=== PATIENT | male | born 1970 | race Hispanic/Latino ===

== ENCOUNTER 2017-12-31 12:24 | Emergency (ER) | payer BC ==
[~2017-12-31] VITALS: Ht 172.7 cm; Wt 117.9 kg
[2017-12-31] MEDS ORDERED: KETOROLAC TROMETHAMINE 60 MG/2 ML VIAL IM ONE (13:00)
--- NOTE | 2017-12-31 13:43 | Diagnostic Imaging Report ---
EXAM: SHOULDER LEFT COMPLETE DATE: 12/31/2017 12:57 PM INDICATION: Fall/pain COMPARISON: None FINDINGS: No fracture or subluxation. Subacromial space is intact. No significant degenerative change. Visualized left lung clear. IMPRESSION: No acute findings. Signed by: Dr. Lebron Camacho MD on 12/31/2017 1:40 PM
--- NOTE | 2017-12-31 13:45 | Diagnostic Imaging Report ---
EXAM: XR CHEST 2 VIEWS DATE: 12/31/2017 12:57 PM INDICATION: Fall/pain COMPARISON: None FINDINGS: Lines and Tubes: None Heart and Mediastinum: No acute cardiomediastinal findings. Lungs and Pleura: No significant pleural effusion, pneumothorax, or focal consolidation. Bones and Soft Tissues: No acute findings. IMPRESSION: 1. No acute cardiopulmonary findings. Signed by: Dr. eLbron Camacho MD on 12/31/2017 1:41 PM
== END 2017-12-31 15:10 | disposition home or self-care (01) ==
LOC: ER 12:24
DX: S46.011A Strain of muscle(s) and tendon(s) of the rotator cuff of right shoulder, initial encounter (principal); W11.XXXA Fall on and from ladder, initial encounter; Y92.008 Other place in unspecified non-institutional (private) residence as the place of occurrence of the external cause
CPT/HCPCS: 71046; 73030; 99283; J1885

== ENCOUNTER 2019-12-28 18:53 | Emergency (ER) | payer BC ==
[~2019-12-28] VITALS: Ht 172.7 cm; Wt 117.9 kg
--- NOTE | 2019-12-28 19:16 | Emergency Department Note ---
History of Present Illnes History of Present Illness Chief Complaint: Laceration History of Present Illness This is a 49 year old male presents to the ED for laceration of index f jonnie. 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 Historian: Patient Arrival Mode: Car Onset (how long ago): minute(s) Radiation: Reports non-radiation, Reports extremity Past Medical/Family History Physician Review I have reviewed the patient's past medical and family history. Any updates have been documented here. Past Medical History Past Medical History: None Past Surgical History: None Other Last Tetanus: UTD Physical Exam Related Data Allergies: Coded Allergies: No Known Allergies (Unverified , 12/31/17) Triage Vital Signs Vital Signs Date Time Temp Pulse Resp B/P (MAP) Pulse Ox O2 Delivery O2 Flow Rate FiO2 12/28/19 19:26 98.2 78 20 166/71 97 Room Air Vital signs reviewed: Yes Physical Exam CONSTITUTIONAL Constitutional: Present well-developed, Present well-nourished HENT HENT: Present normocephalic, Present atraumatic, Present oropharynx clear/moist, Present nose normal HENT L/R: Present left ext ear normal, Present right ext ear normal EYES Eyes: Reports PERRL, Reports conjunctivae normal NECK Neck: Present ROM normal PULMONARY Pulmonary: Present effort normal, Present breath sounds normal CARDIOVASCULAR Cardiovascular: Present regular rhythm, Present heart sounds normal, Present capillary refill normal, Present normal rate GASTROINTESTINAL Abdominal: Present soft, Present nontender, Present bowel sounds normal GENITOURINARY Genitourinary: Present exam deferred SKIN Skin: Present warm, Present dry, Present other (2 cm laceration L index finger) MUSCULOSKELETAL Musculoskeletal: Present ROM normal NEUROLOGICAL Neurological: Present alert, Present oriented x 3, Present no gross motor or sensory deficits PSYCHOLOGICAL Psychological: Present mood/affect normal, Present judgement normal Procedures Laceration Laceration: Laceration 1 Site: hand Side: left Size (cm): 2 Description: linear Depth: simple, single layer Local anesthesia: lidocaine 1% Amount of anesthesia (mL): 3 Skin layer closed with: nylon Size (cm): 5-0 Number of sutures: 4 Technique: simple, interrupted Assessment & Plan Medical Decision Making MDM Laceration primarily repaired Assessment & Plan Final Impression: (1) Laceration of finger Depart Disposition: HOME, SELF-CARE ISSAC RDZ DO Dec 28, 2019 19:16
[2019-12-28] MEDS ORDERED: LIDOCAINE HCL 1% LOCAL INJ 20 ML VIAL INJ ONE (19:30)
[2019-12-28] MEDS ORDERED: TETANUS/DIPHTHERIA TOX ADULT 0.5 ML SYR ONE (19:36)
[2019-12-28] MEDS ORDERED: TETANUS/DIPHTHERIA TOX ADULT 0.5 ML SYR IM ONE (19:45)
--- OUTSIDE RECORDS SUMMARY | 2019-12-30 16:25 | XMS REPORT | Continuity of Care Document ---
Author Author [facility] t Organization [facility] Address [address] [place] [address] Phone Unavailable Care Team Providers Care Lasting Floorworker Name Role Phone MIRANDA LINN PCP Myra ANDREWS Unavailable Payers Payer Name Policy Type Policy Number Effective Date Expiration Date S laz[place] [employer] [place] [id number] CH I [facility] Problems Condition Name Condition Details Condition Category Status Onset Date Resolution Date Last Treatment Date Treating Clinician Comments Source Laceration of finger Problem Active [facility] Allergies, Adverse Reactions, Alerts This patient has no known allergies or adverse reactions. Social History Social Habit Start Date Stop Date Quantity Comments Source Sex Assigned At 1970 00:00:00 1970 00:00:00 Male [facility] Medications This patient has no known medications. Vital Signs Vital Name Observation Time Observation Value Comments Source Weight 2019-12-28 19:26:00 260 [lb_av] [facility] BMI (Body Mass Index) 2019-12-28 19:26:00 39.5 kg/m2 [facility] Procedures This patient has no known procedures. Plan of Care Planned Activity Planned Date Details Comments Source Instructions Laceration [facility] Encounters Start Date/Time End Date/Time Encounter Type Admission Type Attendi [facility] Care Department Encounter ID Source 2019-12-28 19:26:00 2019-12-28 19:38:00 Departed Emergency Room [facility] [id number] [facility] 2017-12-31 12:24:00 2017-12-31 15:10:00 Departed Emergency Room 1 CAMILO ANDREWS [facility] [id number] [facility] Results Test Description Test Time Test Comments Results Result Comments Source CHEST 2 VIEWS 2017-12-31 13:41:00 [facility] [address] [place] [address] Patient Name: TERESA SHANNON MR #: [id number] : 1970 Age/Sex: 47/M Req #: [id number] Adm Physician: Ordered by: CRISTÓBAL AGUIAR NP Report #: [id number] Location: ER Room/Bed: Procedure: [id number] DX/CHEST 2 VIEWS Exam Date: 12/31/17 Exam Time: 1330 REPORT STATUS: Signed EXAM: XR CHEST 2 VIEWS DATE: 12/31/2017 12:57 PM INDICATION: Fall/pain COMPARISON: None FINDINGS: Lines and Tubes: None Heart and Mediastinum: No acute cardiomediastinal findings. Lungs and Pleura: No significant pleural effusion, pneumothorax, or focal consolidation. Bones and Soft Tissues: No acute findings. IMPRESSION: 1. No acute cardiopulmonary findings. Signed by: Dr. Odalys Camacho MD on 12/31/2017 1:41 PM Dictated By: ODALYS CAMACHO MD 1341 Transcribed By: SHAUNNA on 12/31/17 1341 COPY TO: CRISTÓBAL AGUIAR NP SHOULDER LEFT COMPLETE 2017-12-31 13:39:00 [place] [address] Patient Name: TERESA SHANNON MR #: [id number] : 1970 Age/Sex: 47/M Req #: [id number] [facility] Physician: Ordered by: CRISTÓBAL AGUIAR NP Report #: [id number] Location: ER Room/Bed: Procedure: [id number] DX/SHOULDER LEFT COMPLETE Exam Date: 12/31/17 Exam Time: 1330 REPORT STATUS: Signed EXAM: SHOULDER LEFT COMPLETE DATE: 12/31/2017 12:57 PM INDICATION: Fall/pain COMPARISON: None FINDINGS: No fracture or subluxation. Subacromial space is intact. No significant degenerative change. Visualized left lung clear. IMPRESSION: No acute findings. Signed by: Dr. Odalys Camacho MD on 12/31/2017 1:40 PM Dictated By: ODALYS CAMACHO MD 1340 Transcribed By: SHAUNNA on 12/31/17 1340 COPY TO: CRISTÓBAL AGUIAR NP
== END 2019-12-28 19:38 | disposition home or self-care (01) ==
LOC: ER 19:26
DX: S61.211A Laceration without foreign body of left index finger without damage to nail, initial encounter (principal); W26.0XXA Contact with knife, initial encounter; Y92.008 Other place in unspecified non-institutional (private) residence as the place of occurrence of the external cause
CPT/HCPCS: 90471; 90714; 99282

== ENCOUNTER 2020-02-14 17:12 | Inpatient (IN) | payer BC ==
[~2020-02-14] VITALS: Ht 170.2 cm; Wt 109.8 kg
[2020-02-14] MEDS ORDERED: DEXAMETHASONE SOD PHOS 10 MG/1 ML VIAL IV ONE (17:30)
--- NOTE | 2020-02-14 17:45 | Emergency Department Note ---
History of Present Illnes History of Present Illness Chief Complaint: COVID PUI History of Present Illness This is a 50 year old male Chief Complaint Comment Patient c/o increased SOB, chestpain, cough, headaches for 3days; patient recently dx with COVID 02/06/2020; Historian: Patient Arrival Mode: Car Project Officer Required: No Onset (how long ago): week(s) (1) Location: lungs Quality: SoB Radiation: Reports non-radiation Severity: moderate Onset quality: gradual Duration (how long): week(s) (1) Timing of current episode: constant Progression: worsening Chronicity: new Context: Reports recent illness (COVID); Denies recent surgery Relieving factors: none Exacerbating factors: none Associated symptoms: Reports denies other symptoms Treatments prior to arrival: none (SILAS PENDLETON MD) Past Medical/Family History Physician Review I have reviewed the patient's past medical and family history. Any updates have been documented here. (SILAS PENDLETON MD) Past Medical History Recent Fever: Yes Clinical Suspicion of Infectio: Yes New/Unexplained Change in Ment: No Past Medical History: Hypertension, Diabetes Past Surgical History: None (SILAS PENDLETON MD) Social History Physically hurt or threatened: No (SILAS PENDLETON MD) Other Last Tetanus: UTD (SILAS PENDLETON MD) Review of Systems Review of Systems Constitutional: Reports no symptoms EENTM: Reports no symptoms Cardiovascular: Reports as per HPI, Reports other (Chest pressure) Respiratory: Reports as per HPI, Reports cough, Reports dyspnea Gastrointestinal: Reports no symptoms Genitourinary: Reports no symptoms Musculoskeletal: Reports no symptoms Integumentary: Reports no symptoms Neurological: Reports no symptoms Psychological: Reports no symptoms Endocrine: Reports no symptoms Hematological/Lymphatic: Reports no symptoms (SILAS PENDLETON MD) Physical Exam Related Data Allergies: Coded Allergies: No Known Allergies (Unverified , 12/31/17) Triage Vital Signs Vital Signs Date Time Temp Pulse Resp B/P (MAP) Pulse Ox O2 Delivery O2 Flow Rate FiO2 02/14/20 17:33 99.8 90 21 123/86 83 Room Air Vital signs reviewed: Yes (SILAS PENDLETON MD) Physical Exam CONSTITUTIONAL Constitutional: Present well-developed, Present well-nourished HENT HENT: Present normocephalic, Present atraumatic, Present oropharynx clear/moist, Present nose normal HENT L/R: Present left ext ear normal, Present right ext ear normal EYES Eyes: Reports PERRL, Reports conjunctivae normal NECK Neck: Present ROM normal PULMONARY Pulmonary: Present effort normal, Present breath sounds normal, Present other (O2 sat 88% on RA) CARDIOVASCULAR Cardiovascular: Present regular rhythm, Present heart sounds normal, Present capillary refill normal, Present normal rate GASTROINTESTINAL Abdominal: Present soft, Present nontender, Present bowel sounds normal GENITOURINARY Genitourinary: Present exam deferred SKIN Skin: Present warm, Present dry MUSCULOSKELETAL Musculoskeletal: Present ROM normal NEUROLOGICAL Neurological: Present alert, Present oriented x 3, Present no gross motor or sensory deficits PSYCHOLOGICAL Psychological: Present mood/affect normal, Present judgement normal (SILAS PENDLETON MD) Results Laboratory Laboratory Laboratory Tests Test 02/14/20 17:30 Lab results reviewed: Yes (SILAS PENDLETON MD) Lab results reviewed: Yes (ORION GLASER MD) Imaging Imaging results reviewed: Yes (SILAS PENDLETON MD) Imaging results reviewed: Yes (ORION GLASER MD) Diagnostics Tests Diagnostic test(s) reviewed: Yes (SILAS PENDLETON MD) Diagnostic test(s) reviewed: Yes (ORION GLASER MD) Procedures 12 Lead ECG Interpretation ECG Interpretation : Project Officer: Interpreted by ED physician Date: Feb 14, 2020 Rhythm: sinus rhythm Rate: normal QRS axis: normal ST segments normal: Yes T waves normal: Yes Clinical Impression: non-specific ECG (SILAS PENDLETON MD) Assessment & Plan Medical Decision Making [facility] 50 y.o M COVID+ presents for SoB. COVID + x 1 week. Endorses chest pressure. Exam shows O2 sat 88% on RA. Increased to 95% o 4L NC. Given 6mg Decadron and will arange admission or transfer based on bed availability. Pending discusion with Dr. Seymour. Attempted to marcia x1 each Handed of to Dr. Glaser @ 1800 (SILAS PENDLETON MD) [facility] Patient was accepted by Dr. Mcmillan, will be admitted currently on 4 L without increased work of breathing. Admitting team. ID has been consulted and here to see the patient. (ORION GLASER MD) Reassessment Reassessment time: 17:45 Reassessment O2 sat improved on NC 4L (SILAS PENDLETON MD) Assessment & Plan Final Impression: (1) COVID-19 (SILAS PENDLETON MD) Final Impression: (1) COVID-19 (2) Pneumonia due to COVID-19 virus (3) Hypoxia (ORION GLASER MD) Depart Disposition: ADMITTED Last Vital Signs Date Time Temp Pulse Resp B/P (MAP) Pulse Ox O2 Delivery O2 Flow Rate FiO2 02/14/20 17:33 99.8 90 21 123/86 83 Room Air (SILAS PENDLETON MD) Home Meds Reported Medications Triamterene/Hctz (TRIAMTERENE-HCTZ 37.5-25 MG TB) 1 Ea Tab, 1 TAB PO DAILY 02/14/20 Metformin Hcl (METFORMIN HCL) 500 Mg Tablet, 500 MG PO BID 02/14/20 Medications in the ED Dexamethasone Sodium Phosphate 6 mg ONCE ONCE IV ; Start 02/14/20 at 17:30; Stop 02/14/20 at 17:33; Status DC (SILAS PENDLETON MD) SILAS PENDLETON MD Feb 14, 2020 17:45 ORION GLASER MD Feb 14, 2020 19:31
[2020-02-14 17:46] LABS: BASOPHILS % 0.1 % (0.0-1.0); HEMATOCRIT 45.1 % (38.2-49.6); HEMOGLOBIN 15.4 g/dL (14.0-18.0); LYMPHOCYTES # (AUTO) 0.7 (1.0-3.2); LYMPHOCYTES % 7.2 % (18.0-39.1); MEAN CORPUSCULAR HEMOGLOBIN 28.3 pg (28-32); MEAN CORPUSCULAR HGB CONC 34.1 g/dL (31-35); MEAN CORPUSCULAR VOLUME 82.9 fL (81-99); MONOCYTES # (AUTO) 0.4 (0.2-0.8); MONOCYTES % 4.1 % (4.4-11.3); NEUTROPHILS # (AUTO) 8.7 (2.1-6.9); NEUTROPHILS % 87.1 % (38.7-80.0); PLATELET COUNT 329 x10e3/uL (140-360); RED BLOOD COUNT 5.44 x10e6/uL (4.3-5.7); RED CELL DISTRIBUTION WIDTH 12.8 % (11.7-14.4)
--- OUTSIDE RECORDS SUMMARY | 2020-02-14 17:46 | XMS REPORT | Continuity of Care Document ---
Author Author [facility] t Organization [facility] Address [address] [place] [address] Phone Unavailable Care Team Providers Care Labor Trainer Name Role Phone TEMITOPE MIRANDA PCP Myra ANDREWS Unavailable Payers Payer Name Policy Type Policy Number Effective Date Expiration Date S lazaro [employer] [place] Ppo [id number] CH I [facility] Problems Condition Name Condition Details Condition Category Status Onset Date Resolution Date Last Treatment Date Treating Clinician Comments Source Laceration of finger Problem Active [facility] Allergies, Adverse Reactions, Alerts This patient has no known allergies or adverse reactions. Social History Social Habit Start Date Stop Date Quantity Comments Source Sex Assigned At 1970 00:00:00 1970 00:00:00 Male [facility] Medications This patient has no known medications. Vital Signs Vital Name Observation Time Observation Value Comments Source Weight 2019-12-28 19:26:00 260 [lb_av] [facility] BMI (Body Mass Index) 2019-12-28 19:26:00 39.5 kg/m2 [facility] Procedures This patient has no known procedures. Plan of Care Planned Activity Planned Date Details Comments Source Instructions Laceration [facility] Encounters Start Date/Time End Date/Time Encounter Type Admission Type Attendi [facility] Care Department Encounter ID Source 2019-12-28 19:26:00 2019-12-28 19:38:00 Departed Emergency Room [facility] [id number] [facility] 2017-12-31 12:24:00 2017-12-31 15:10:00 Departed Emergency Room 1 CAMILO ANDREWS [facility] [id number] [facility] Results Test Description Test Time Test Comments Results Result Comments Source CHEST 2 VIEWS 2017-12-31 13:41:00 [facility] [address] [place] [address] Patient Name: TERESA SHANNON MR #: [id number] : 1970 Age/Sex: 47/M Req #: [id number] Adm Physician: Ordered by: CRISTÓBAL AGUIAR NP Report #: [id number] Location: ER Room/Bed: Procedure: [id number] DX/CHEST 2 VIEWS Exam Date: 12/31/17 Exam [...] AGUIAR NP SHOULDER LEFT COMPLETE 2017-12-31 13:39:00 [facility] [address] [place] [address] Patient Name: TERESA SHANNON MR #: [id number] : 1970 Age/Sex: 47/M Req #: [id number] Adm Physician: Ordered by: CRISTÓBAL AGUIAR NP Report #: [id number] Location: ER Room/Bed: Procedure: [id number] DX/SHOULDER LEFT COMPLETE Exam Date: 12/31/17 Exam [...]
[2020-02-14 18:04] LABS: ALANINE AMINOTRANSFERASE 28 IU/L (0-55); ALBUMIN 2.8 g/dL (3.5-5.0); ALBUMIN/GLOBULIN RATIO 0.6 (0.8-2.0); ALKALINE PHOSPHATASE 62 IU/L (40-150); ANION GAP 14.7 mmol/L (8-16); BLOOD UREA NITROGEN 14 mg/dL (7-26); BUN/CREATININE RATIO 20 (6-25); CALCIUM 8.4 mg/dL (8.4-10.2); CARBON DIOXIDE 26 mmol/L (22-29); CHLORIDE 96 mmol/L (98-107); EST GLOMERULAR FILTRATION RATE > 60 ML/MIN (60-); GLUCOSE 218 mg/dL (74-118); POTASSIUM 3.7 mmol/L (3.5-5.1); SODIUM 133 mmol/L (136-145)
--- NOTE | 2020-02-14 18:09 | Diagnostic Imaging Report ---
EXAMINATION: CHEST SINGLE (PORTABLE) INDICATION: Shortness of breath. Covid 19 positive. COMPARISON: 12/31/2017. FINDINGS: TUBES and LINES: None. LUNGS: Lungs are well inflated. Mild perihilar, peribronchial thickening and perihilar streaky densities may reflect viral infection versus reactive airway disease. In addition, bilateral diffuse patchy density. PLEURA: No pleural effusion or pneumothorax. HEART AND MEDIASTINUM: Cardiac size is moderately enlarged. BONES AND SOFT TISSUES: No acute osseous lesion. Soft tissues are unremarkable. UPPER ABDOMEN: No free air under the diaphragm. IMPRESSION: Findings consistent with bilateral viral versus atypical infection. (Findings present are commonly reported imaging features of COVID-19 pneumonia. Other processes such as influenza pneumonia and organizing pneumonia, as can be seen with drug toxicity and connective tissue disease, can cause a similar imaging pattern). Signed by: Dr. Diamond Anders M.D. on 02/14/2020 6:06 PM
--- NOTE | 2020-02-14 18:41 | NUR ---
Report to CAITLIN David
--- OUTSIDE RECORDS SUMMARY | 2020-02-14 19:07 | XMS REPORT | Continuity of Care Document ---
Author Author [facility] t Organization [facility] Address [address] [place] [address] Phone Unavailable Care Team Providers Care Geriatrics Physician Name Role Phone TEMITOPE, RUBEN PCP Heather Lira Attphybeau Unavailable Myra ANDREWS Attphybeau Unavailable Payers Payer Name Policy Type Policy Number Effective Date Expiration Date S lazaro [employer] [place] Ppo [id number] CH I [facility] Problems Condition Name Condition Details Condition Category Status Onset Date Resolution Date Last Treatment Date Treating Clinician Comments Source Laceration of finger Problem Active [facility] Allergies, Adverse Reactions, Alerts This patient has no known allergies or adverse reactions. Social History Social Habit Start Date Stop Date Quantity Comments Source Sex Assigned At 1970 00:00:00 1970 00:00:[address] [facility] Medications This patient has no known medications. Vital Signs Vital Name Observation Time Observation Value Comments Source Weight 2019-12-28 19:26:00 260 [lb_av] [facility] BMI (Body Mass Index) 2019-12-28 19:26:00 39.5 kg/m2 [facility] Procedures This patient has no known procedures. Plan of Care Planned Activity Planned Date Details Comments Source Instructions Laceration [facility] Encounters Start Date/Time End Date/Time Encounter Type Admission Type Attendi [facility] Care Department Encounter ID Source 2019-12-28 19:26:00 2019-12-28 19:38:00 Departed Emergency Room [facility] [id number] [facility] 2017-12-31 12:24:00 2017-12-31 15:10:00 Departed Emergency Room 1 CAMILO ANDREWS [facility] [id number] [facility] Results Test Description Test Time Test Comments Results Result Comments Source CHEST SINGLE (PORTABLE) 2020-02-14 18:03:00 [facility] 1970 Sex: [place] [address] Patient Name: TERESA SHANNON MR #: [id number] : 1970 Age/Sex: 50/M Req #: [id number] [facility] Physician: Ordered by: Silas Lira MD Report #: [id number] Location: ER Room/Bed: Procedure: [id number] DX/CHEST SINGLE (PORTABLE) Exam Date: Exam Time: REPORT STATUS: Signed EXAMINATION: CHEST SINGLE (PORTABLE) INDICATION: Shortness of breath. Covid 19 positive. COMPARISON: 12/31/2017. FINDINGS: TUBES and LINES: None. LUNGS: Lungs are well inflated. Mild perihilar, peribronchial thickening and perihilar streaky densities may reflect viral infection versus reactive airway disease. In addition, bilateral diffuse patchy density. PLEURA: No pleural effusion or pneumothorax. HEART AND MEDIASTINUM: Cardiac size is moderately enlarged. BONES AND SOFT TISSUES: No acute osseous lesion. Soft tissues are unremarkable. UPPER ABDOMEN: No free air under the diaphragm. IMPRESSION: Findings consistent with bilateral viral versus atypical infection. (Findings present are commonly reported imaging features of COVID- 19 pneumonia. Other processes such as influenza pneumonia and organizing pneumonia, as can be seen with drug toxicity and connective tissue disease, can cause a similar imaging pattern). Signed by: Dr. Diamond Miranda M.D. on 02/14/2020 6:06 PM Dictated By: HALLE MIRANDA MD, MD 05 Transcribed By: SHAUNNA on 02/14/201805 COPY TO: SILAS LIRA MD CHEST 2 VIEWS 2017-12-31 13:41:00 [place] [address] Patient Name: TERESA SHANNON MR #: [id number] : 1970 Age/Sex: 47/M Req #: [id number] Adm Physician: Ordered by: CRISTÓBAL AGUIAR NP Report #: [id number] Location: ER Room/Bed: Procedure: [id number] DX/CHEST 2 VIEWS Exam Date: 12/31/17 Exam [...] MD 1341 Transcribed By: SHAUNNA on 12/31/17 134 COPY TO: CRISTÓBAL AGUIAR NP SHOULDER LEFT COMPLETE 2017-12-31 13:39:00 [address] [place] [address] Patient Name: TERESA SHANNON MR #: [id number] : 1970 Age/Sex: 47/M Req #: [id number] Adm Physician: Ordered by: CRISTÓABL AGUIAR NP Report #: [id number] Location: ER Room/Bed: Procedure: [id number] DX/SHOULDER LEFT COMPLETE Exam Date: 12/31/17 Exam [...]
[2020-02-14] MEDS ORDERED: METFORMIN HCL500 MG PO (19:12)
[2020-02-14] MEDS ORDERED: TRIAMTERENE-HCTZ1 EA PO (19:12)
[2020-02-14] MEDS ORDERED: DEXTROSE 50% SYRINGE 50 ML IV PRN (20:00)
[2020-02-14] MEDS ORDERED: CEFTRIAXONE SOD 1 GM/NS 50 ML 50 ML IV SCH (20:00)
[2020-02-14] MEDS ORDERED: ZOLPIDEM TARTRATE 5 MG TAB PO PRN (20:00)
[2020-02-14 20:18] VITALS: BP 64/72
--- NOTE | 2020-02-14 20:18 | NUR ---
patient received to room 186 via stretcher from the emergency room. vss. no c/o pain. patient very sob on exertion. 05/08/ in use. 02 sats 91% at this time. occasional coughing noted. telemetry #90 shows NSR. admit assessment/history complete. call cedeño placed within reach. patient instructed to call for assistance when needed.
[2020-02-14 20:24] VITALS: BP 123/64
[2020-02-14 20:44] VITALS: BP 123/64
[2020-02-14] MEDS: INSULIN REGULAR, HUMAN 100 UNIT/1 ML 3ML VIAL SQ SCH (21:28)
[2020-02-14] MEDS ORDERED: SODIUM CHLORIDE 0.9% 250ML 250 ML ONE (21:29)
[2020-02-14] MEDS: AZITHROMYCIN 500MG/NS 250 ML 250 ML IV SCH (22:00)
[2020-02-14] MEDS ORDERED: GUAIFENESIN 600MG/DEXTROMETHORPHAN 30MG TABSR PO PRN (23:15)
[2020-02-14] MEDS ORDERED: ONDANSETRON HCL INJ 2MG/ML 2ML 2 MG/ML VIAL IV PRN (23:30)
[2020-02-14] MEDS ORDERED: METOPROLOL TARTRATE INJ 1 MG/ML VIAL IV PRN (23:30)
[2020-02-14] MEDS ORDERED: TEMAZEPAM 7.5 MG CAP PO PRN (23:30)
[2020-02-14] MEDS ORDERED: POLYETHYLENE GLYCOL 3350 17 GM PACK PO PRN (23:30)
--- NOTE | 2020-02-14 23:45 | NUR ---
patient medicated with mucinex dm 1 tab po for c/o cough at this time.
[2020-02-15] VITALS (8 sets, daily range): BP systolic 114–132; BP diastolic 70–81
--- NOTE | 2020-02-15 | NUR ---
vss. 02 saturation 85% on 4l/nc. 02 increased to 5l/nc at this time. 02 sats increased to 90%.
--- NOTE | 2020-02-15 02:59 | NUR ---
patient diaphoretic. patients blood sugar 167 at this time.
[2020-02-15] MEDS: BENZONATATE 100 MG CAP PO SCH ×2 (03:10→06:00)
--- NOTE | 2020-02-15 03:10 | NUR ---
patient continues to cough. call placed to re: cough. patient medicated with tessalon perles 1 po for cough at this time per orders.
[2020-02-15 04:41] LABS: BASOPHILS % 0.2 % (0.0-1.0); HEMATOCRIT 45.9 % (38.2-49.6); HEMOGLOBIN 15.4 g/dL (14.0-18.0); LYMPHOCYTES # (AUTO) 0.8 (1.0-3.2); LYMPHOCYTES % 8.7 % (18.0-39.1); MEAN CORPUSCULAR HEMOGLOBIN 28.1 pg (28-32); MEAN CORPUSCULAR HGB CONC 33.6 g/dL (31-35); MEAN CORPUSCULAR VOLUME 83.8 fL (81-99); MONOCYTES # (AUTO) 0.5 (0.2-0.8); MONOCYTES % 4.9 % (4.4-11.3); NEUTROPHILS # (AUTO) 7.8 (2.1-6.9); NEUTROPHILS % 85.1 % (38.7-80.0); PLATELET COUNT 358 x10e3/uL (140-360); RED BLOOD COUNT 5.48 x10e6/uL (4.3-5.7); RED CELL DISTRIBUTION WIDTH 12.7 % (11.7-14.4)
[2020-02-15 05:01] LABS: ALANINE AMINOTRANSFERASE 28 IU/L (0-55); ALBUMIN 2.7 g/dL (3.5-5.0); ALBUMIN/GLOBULIN RATIO 0.6 (0.8-2.0); ALKALINE PHOSPHATASE 59 IU/L (40-150); ANION GAP 14.8 mmol/L (8-16); BLOOD UREA NITROGEN 15 mg/dL (7-26); BUN/CREATININE RATIO 22 (6-25); CALCIUM 8.6 mg/dL (8.4-10.2); CARBON DIOXIDE 25 mmol/L (22-29); CHLORIDE 99 mmol/L (98-107); CHOL/HDL RATIO 4.9 (3.9-4.7); CHOLESTEROL 136 MD/DL (0-199); CREATININE, SERUM 0.68 mg/dL (0.72-1.25); EST GLOMERULAR FILTRATION RATE > 60 ML/MIN (60-); GLUCOSE 158 mg/dL (74-118); HDL CHOLESTEROL 28 MG/DL (40-60); LDL CHOLESTEROL 85 MG/DL (60-130); MAGNESIUM 2.3 MG/DL (1.3-2.1); PHOSPHORUS 3.2 MG/DL (2.3-4.7); POTASSIUM 3.8 mmol/L (3.5-5.1); SODIUM 135 mmol/L (136-145); TRIGLYCERIDES 116 MG/DL (0-149)
[2020-02-15 05:27] LABS: THYROID STIMULATING HORMONE 0.461 uIU/mL (0.350-4.940)
--- NOTE | 2020-02-15 06:16 | NUR ---
urine collected for ua/micro and sent to lab at this time.
--- NOTE | 2020-02-15 06:27 | NUR ---
here to see patient. new orders noted.
[2020-02-15 06:39] LABS: BILIRUBIN,URINE NEGATIVE (NEGATIVE); CLARITY,URINE CLEAR (CLEAR); COLOR,URINE YELLOW (YELLOW); KETONES,URINE NEGATIVE (NEGATIVE); LEUKOCYTE ESTERASE ,URINE NEGATIVE (NEGATIVE); NITRITE,URINE NEGATIVE (NEGATIVE); PROTEIN,URINE DIPSTICK 2+ (NEGATIVE); URINE UROBILINOGEN 1 mg/dL (0.2 - 1)
[2020-02-15 06:52] LABS: BACTERIA,URINE FEW /HPF; EPITHELIAL CELLS,URINE FEW /LPF
[2020-02-15 06:53] LABS: HYALINE CASTS 0-1 (0-1)
--- NOTE | 2020-02-15 07:15 | NUR ---
REC'D REPORT FROM SHANTE JOSUE RN FOR CONTINUITY OF CARE.
--- NOTE | 2020-02-15 07:51 | Consultation ---
DATE OF CONSULTATION: Pulmonary Critical Care Consultation CHIEF COMPLAINT: Cough and dyspnea. HISTORY OF PRESENT ILLNESS: The patient is a 50-year-old man with diabetes mellitus. He takes metformin. He also has a history of hypertension. He reports dyspnea and cough for about nine days. He notes when he coughs his breathing is significantly worse. He has had some fevers. He denies chest pain. There is no nausea or vomiting. PAST MEDICAL HISTORY: 1. Diabetes. 2. Hypertension. PAST SURGICAL HISTORY: Laceration of finger. ALLERGIES: NO KNOWN DRUG ALLERGIES. SOCIAL HISTORY: The patient works here at [employer]. He is not an active smoker. He is not an active drinker. FAMILY HISTORY: Noncontributory. REVIEW OF SYSTEMS: The patient is afebrile. He is not having any headaches. He has had some dizziness. He has no neck pain. He has no chest pain. He does have coughing. With severe coughing, he has worsening dyspnea. He also has some chest discomfort. He has no abdominal pain. He has no nausea or vomiting. No leg edema. PHYSICAL EXAMINATION: VITAL SIGNS: The blood pressure is 129/81, saturation is 89% on 4 L. The pulse is 60. Respiratory rate is 22. HEENT: Shows no facial swelling or erythema. LYMPHATIC: Shows no submandibular, cervical, supraclavicular adenopathy. CARDIAC: Reveals regular rate and rhythm with normal S1, S2. LUNGS: Auscultation of lungs reveals rhonchi bilaterally. There is no wheezing. ABDOMEN: Soft, nontender. There is no rebound or guarding. EXTREMITIES: Shows no leg edema or calf tenderness. There is no cyanosis or clubbing. SKIN: Shows no rashes. NEUROLOGICAL: Shows no focal abnormalities. LABORATORY DATA: White blood cell count is 9.17, hemoglobin is 15.4 and the platelet count 359. The BUN to creatinine ratio is normal. The other electrolytes are within normal limits. The albumin is 2.7. The hemoglobin A1c is 7.2. RADIOGRAPHIC DATA: Chest x-ray shows bilateral infiltrates consistent with viral pneumonia. IMPRESSION: 1. COVID-19 and viral pneumonia. 2. Diabetes. 3. Hypertension. PLAN: 1. Continue Zithromax and Rocephin. 2. Lovenox for DVT prophylaxis. 3. Dexamethasone. 4. Continue oxygen. 5. Begin Remdesivir after consultation with ID. 6. Evaluate for monoclonal antibodies to . MD RADHA Loyola/RYDER /[id number]
[2020-02-15] MEDS: INSULIN REGULAR, HUMAN 100 UNIT/1 ML 3ML VIAL SQ SCH ×4 (08:30→20:09)
[2020-02-15] MEDS ORDERED: DEXAMETHASONE SOD PHOS 10 MG/1 ML VIAL IV SCH (09:00)
[2020-02-15] MEDS: ENOXAPARIN SOD INJ 40 MG/0.4 ML SYR SC SCH (09:09)
[2020-02-15] MEDS: CHOLECALCIFEROL 400 UNIT TAB PO SCH (09:09)
[2020-02-15] MEDS: ZINC SULFATE 220 MG CAP PO SCH ×2 (09:09→17:10)
[2020-02-15] MEDS: DEXAMETHASONE SOD PHOS INJ 4 MG/ML VIAL IV SCH (09:09)
[2020-02-15] MEDS: ASCORBIC ACID 500 MG TAB PO SCH ×2 (09:09→17:10)
[2020-02-15] MEDS: FAMOTIDINE 20 MG/2 ML VIAL IV SCH ×2 (09:09→17:10)
[2020-02-15] MEDS: DOCUSATE SODIUM 100 MG CAP PO SCH ×2 (09:09→17:10)
[2020-02-15] MEDS ORDERED: REMDESIVIR 200MG/NS 100ML 200 MG IV ONE (18:30)
--- NOTE | 2020-02-15 19:08 | Consultation ---
DATE OF CONSULTATION: REASON FOR CONSULTATION: COVID-19, shortness of breath, and respiratory failure. HISTORY OF PRESENT ILLNESS: The patient, who is a 50-year-old male, who has history of obesity, diabetes mellitus on metformin, and hypertension, comes in with shortness of breath, started 5 days ago, he is telling me. The patient comes into the hospital. The patient was admitted. He was started on oxygen. He is now on 4 L. The patient, who has history of diabetes mellitus and hypertension, who is here in the hospital. PAST MEDICAL HISTORY: As above. PAST SURGICAL HISTORY: Laceration of the finger. SOCIAL HISTORY: There is no smoking, drug abuse, or alcohol abuse. FAMILY HISTORY: Otherwise hypertension. REVIEW OF SYSTEMS: At the present time, he has had shortness of breath. He denies any. He has some dry cough. LABORATORY DATA: White count 9.17 and hemoglobin 15. His PCR was positive. Sodium 135, potassium 3.8, and creatinine 0.68. His AST 47. His chest x-ray showed he had bilateral infiltrate. PHYSICAL EXAMINATION: GENERAL: He is currently alert and oriented. VITAL SIGNS: Stable, currently afebrile. He is currently on 6 L. HEENT: He is not icteric. NECK: Supple. CHEST: Crackles bilateral. HEART: S1 and S2. ABDOMEN: Soft. Bowel sounds present. EXTREMITIES: No edema. SKIN: No rash. IMPRESSION: COVID-19, respiratory failure, superimposed bacterial pneumonia, diabetes mellitus, and hypertension. RECOMMENDATIONS: Rocephin 1 g daily 5 days, azithromycin 500 mg IV for 3 days, Lovenox 40 mg daily, dexamethasone 6 mg daily for 10 days, and remdesivir 200 mg now and then 100 daily for 5 more days. We talked about remdesivir that it is recently approved. The study is still ongoing, but it is in favor. He would like to take it. He knows that it is optional. We will start remdesivir when available. Oxygen as needed. The patient is infectious for 21 days. We will follow. MD JANICE Villatoro/RYDER /[id number]
--- NOTE | 2020-02-15 19:22 | NUR ---
Received pt in bed awake and oriented. No c/o at this time, no s/sx of acute distress. Discussed care plan with patient verbalized understanding. Bed low and locked, call cedeño and personal items within reach. Shift report completed. Will continue to monitor patient.
[2020-02-15] MEDS: HYDROCODONE/CHLORPHENIRAMINE 5 ML LIQCR PO PRN (20:10)
[2020-02-15] MEDS: CEFTRIAXONE SOD 2 GM/NS 100 ML 100 ML IV SCH (21:10)
[2020-02-15] MEDS: AZITHROMYCIN 500MG/NS 250 ML 250 ML IV SCH (22:20)
[2020-02-16] VITALS (8 sets, daily range): BP systolic 95–122; BP diastolic 59–72
--- NOTE | 2020-02-16 00:20 | History and Physical ---
CONSULTING PHYSICIANS: Include: 1. Mechelle Sanchez MD. 2. Levar Rodriguez MD with Pulmonology/Critical Care Medicine. PRIMARY CARE PHYSICIAN: Fausto Crawley CHIEF COMPLAINT: Shortness of breath. HISTORY OF PRESENT ILLNESS: The patient is a 50-year-old male with dyspnea and cough for 9 days, who was admitted via the emergency department with COVID-19 per ER documentation. He has had shortness of breath and "strong headaches" as well as a fever of 102.9. He was tested at [facility] (a small ER on [address]) along with his and they were both positive for COVID-19. They went home for a few days and were not too short of breath, but this progressively worsened over 4 to 5 days and the patient decided to come into the ER. PAST MEDICAL HISTORY: Diabetes mellitus, hypertension, and obesity. PAST SURGICAL HISTORY: Finger laceration repair at the left index finger. FAMILY HISTORY: Mother has a history of migraines, diabetes mellitus, obesity, hypertension. Father has a history of hypertension. Sister has history of systemic lupus erythematosus. Another sister has history of diabetes mellitus, obesity. Brother has a history of diabetes mellitus. 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 The patient denies previous use of tobacco, alcohol, or illicit drugs. ALLERGIES: NO KNOWN ALLERGIES. HOME MEDICATIONS: 1. Metformin 500 mg b.i.d. 2. Triamterene/hydrochlorothiazide 37.5/25 mg daily. REVIEW OF SYSTEMS: CONSTITUTIONAL: The patient has had fevers. EYES, EARS, NOSE, THROAT: Denies issues. RESPIRATORY: The patient states his cough is contributed to his headache. Clear phlegm. GENITOURINARY: Dark urine. Drinking copious amounts of water. No difficulty urinating. PSYCHIATRIC AND INTEGUMENTARY: No complaints of skin problems. CARDIOVASCULAR: Chest pain when coughing. No complaints of palpitations. GASTROINTESTINAL: Considerable nausea. He did vomit sometime after tasting. Last bowel movement was this morning, 02/14. MUSCULOSKELETAL: Generalized weakness. NEUROLOGIC: Headache, currently rated 5/10 on a 0 to 10 pain scale. ENDOCRINE: He is a known diabetic. HEMATOLOGIC/LYMPHATIC: No complaints of bleeding or bruising. PHYSICAL EXAMINATION: VITAL SIGNS: Temperature 98.3, pulse 69, blood pressure 114/70, respirations 18, and oxygen saturation 89%. Height 5 feet 7 inches, weight 220 pounds, BMI 34.45 kg. Those vital signs were from this morning. This evening, temperature 98.1, pulse 65, respirations 24, oxygen saturation 91% on 8 L of oxygen via nasal cannula. GENERAL: No acute distress, supine in bed. LUNGS: Rhonchi bilaterally. No wheezing. HEENT: EOMI. Oropharynx clear. NECK: Supple. CARDIOVASCULAR: Regular rate and rhythm. No murmur. ABDOMEN: Bowel sounds positive. Soft, obese. EXTREMITIES: No pitting edema. No clubbing, cyanosis, or signs of DVT. NEUROLOGIC: GCS 15. Nonfocal. LABORATORY DATA: WBCs 9.17, hemoglobin 15.4, hematocrit 45.9, platelets 358. Sodium 135, potassium 3.8, chloride 99, CO2 of 25. BUN 15, creatinine 0.68, estimated GFR greater than 60, glucose 158. Hemoglobin A1c 7.2%, calcium 8.6, phosphorus 3.2, magnesium 2.3, total bilirubin 0.5. AST 39, ALT 28, alkaline phosphatase 59, troponin I 0.02. Total protein 7.2, albumin 2.7, globulin 4.5, triglycerides 116, cholesterol 136, LDL 85, HDL 28, TSH 0.461. Urinalysis done today showed specific gravity greater than or equal to 1.03, protein 2+, negative for nitrites, negative for leukocyte esterase. WBCs 6 to 10, a few bacteria, a few epithelial cells, 1 to 5 fine granular casts, and 1 to 5 coarse granular casts. SEROLOGY: Coronavirus PCR collected on 02/13 was detected positive. A 12-lead EKG done on 02/13 showed normal sinus rhythm with a heart rate of 85. Chest x-ray showed findings consistent with bilateral viral versus atypical infection. ASSESSMENT AND PLAN: 1. Coronavirus disease 2019 with viral pneumonia. Continue azithromycin for 3 days. Continue Rocephin for 5 days as per Infectious Disease recommendations. The patient is open to receiving remdesivir once it is available. Continue dexamethasone 6 mg daily, Lovenox 40 mg daily, vitamin C, zinc sulfate, cholecalciferol. Continue supplemental oxygen and wean as tolerated. The patient is currently using Tussionex for cough successfully. Monitor oxygen saturation closely. 2. Controlled hypertension. We will resume the patient's home dose of triamterene and hydrochlorothiazide. Monitor blood pressure. 3. Controlled type 2 diabetes mellitus. Serum glucose 158. Last fingerstick blood glucose level be checked a.c. and at bedtime. Resume home dose of metformin. 4. Obesity with BMI 34.45. Dietary restrictions. 5. Acute hyponatremia, improving. Sodium level 135 (133). Monitor sodium level. 6. Prophylaxis. Lovenox and Pepcid. Inpatient, billing code [id number], time spent greater than 60 minutes. Dictated by Marvin Mcgowan NP MD [place]ENTON Marie/MODL /[id number]
[2020-02-16] MEDS: HYDROCODONE/CHLORPHENIRAMINE 5 ML LIQCR PO PRN ×2 (04:50→20:08)
[2020-02-16 04:58] LABS: BASOPHILS % 0.1 % (0.0-1.0); HEMATOCRIT 45.5 % (38.2-49.6); HEMOGLOBIN 15.1 g/dL (14.0-18.0); LYMPHOCYTES # (AUTO) 1.3 (1.0-3.2); LYMPHOCYTES % 9.3 % (18.0-39.1); MEAN CORPUSCULAR HEMOGLOBIN 27.8 pg (28-32); MEAN CORPUSCULAR HGB CONC 33.2 g/dL (31-35); MEAN CORPUSCULAR VOLUME 83.8 fL (81-99); MONOCYTES # (AUTO) 0.9 (0.2-0.8); MONOCYTES % 6.3 % (4.4-11.3); NEUTROPHILS # (AUTO) 11.8 (2.1-6.9); NEUTROPHILS % 83.2 % (38.7-80.0); PLATELET COUNT 419 x10e3/uL (140-360); RED BLOOD COUNT 5.43 x10e6/uL (4.3-5.7)
[2020-02-16 05:16] LABS: ALANINE AMINOTRANSFERASE 35 IU/L (0-55); ALBUMIN 2.7 g/dL (3.5-5.0); ALBUMIN/GLOBULIN RATIO 0.7 (0.8-2.0); ALKALINE PHOSPHATASE 57 IU/L (40-150); ANION GAP 11.7 mmol/L (8-16); BLOOD UREA NITROGEN 15 mg/dL (7-26); BUN/CREATININE RATIO 23 (6-25); CALCIUM 8.5 mg/dL (8.4-10.2); CARBON DIOXIDE 27 mmol/L (22-29); CHLORIDE 104 mmol/L (98-107); CREATININE, SERUM 0.64 mg/dL (0.72-1.25); EST GLOMERULAR FILTRATION RATE > 60 ML/MIN (60-); GLUCOSE 130 mg/dL (74-118); POTASSIUM 3.7 mmol/L (3.5-5.1); SODIUM 139 mmol/L (136-145)
[2020-02-16] MEDS: ENOXAPARIN SOD INJ 40 MG/0.4 ML SYR SC SCH (07:52)
[2020-02-16] MEDS: ASCORBIC ACID 500 MG TAB PO SCH ×2 (07:52→16:24)
[2020-02-16] MEDS: INSULIN REGULAR, HUMAN 100 UNIT/1 ML 3ML VIAL SQ SCH ×4 (07:52→20:06)
[2020-02-16] MEDS: FAMOTIDINE 20 MG/2 ML VIAL IV SCH ×2 (07:52→16:24)
[2020-02-16] MEDS: CHOLECALCIFEROL 400 UNIT TAB PO SCH (07:52)
[2020-02-16] MEDS: DEXAMETHASONE SOD PHOS INJ 4 MG/ML VIAL IV SCH (07:52)
[2020-02-16] MEDS: ZINC SULFATE 220 MG CAP PO SCH (07:52)
[2020-02-16] MEDS: METFORMIN HCL 500 MG TAB PO SCH ×2 (07:52→16:24)
[2020-02-16] MEDS: DOCUSATE SODIUM 100 MG CAP PO SCH ×2 (07:52→16:25)
[2020-02-16] MEDS ORDERED: AZITHROMYCIN 500MG/NS 250 ML 250 ML IV SCH (09:00)
--- NOTE | 2020-02-16 09:21 | NUR ---
patient transferred to room 199 with all belongings.
--- NOTE | 2020-02-16 12:32 | Progress Note ---
DATE: CONSULTING PHYSICIANS: 1. Dr. Mechelle Sanchez with Infectious Disease. 2. Dr. Levar Rodriguez with Pulmonology/Critical Care Medicine. SUBJECTIVE: The patient states he has been coughing a lot today, which is also echoed by the nurse. The patient has been out of bed, OOB with BRP today. Headache 5/10 on a 0 to 10 pain scale currently. No chills or nausea. Last bowel movement, 02/14. PHYSICAL EXAMINATION: VITAL SIGNS: Temperature 97.5, pulse 60, blood pressure 105/69, respirations 18, and oxygen saturation 91%. Intake and output 910 mL in and 470 mL out. GENERAL: Supine. No acute distress. Not coughing during my encounter. LUNGS: Rhonchi bilaterally. No wheezing. HEENT: EOMI. Oropharynx clear. NECK: Supple. CARDIOVASCULAR: Regular rate and rhythm. No murmur. ABDOMEN: Bowel sounds positive. Soft, obese. EXTREMITIES: Without pitting edema. No clubbing, cyanosis, or signs of DVT. NEUROLOGICAL: GCS 15. Nonfocal. LABORATORY DATA: WBCs 14.21, hemoglobin 15.1, hematocrit 45.5, platelets 419, neutrophils 83.2%. Sodium 139, potassium 3.7, chloride 104, CO2 27, BUN 15, creatinine 0.64, estimated GFR greater than 60, glucose 130, and calcium 8.5. Total bilirubin 0.3, AST 45, ALT 35, and alkaline phosphatase 57. Total protein 6.8, albumin 2.7, and globulin 4.1. ASSESSMENT AND PLAN: 1. COVID-19 with viral pneumonia. Continue azithromycin, Rocephin, and remdesivir as well as dexamethasone, Lovenox, vitamin C, zinc sulfate, and cholecalciferol. Wean supplemental oxygen as tolerated. Continue Tussionex for cough. Tessalon Perles 100 mg t.i.d. p.r.n. added. Monitor oxygen saturation closely. Continue BRP and encourage the patient to get OOB. 2. Controlled hypertension. The patient was on triamterene and hydrochlorothiazide at home. Blood pressure today, 105/69. We will hold home antihypertensive for now. Monitor blood pressure. 3. Controlled type 2 diabetes mellitus. Serum glucose 130. FSBG before meals and at bedtime. Continue home dose of metformin and ADA diet. 4. Obesity with BMI of 34.45. Dietary restrictions. 5. Prophylaxis. Lovenox and Pepcid. Inpatient, billing code [id number], time spent greater than 35 minutes. Dictated by Marvin Mcgowan, [employer] MD [place] Marie/RYDER /[id number]
[2020-02-16] MEDS ORDERED: SODIUM CHLORIDE 0.9% 250ML 250 ML ONE (13:21)
[2020-02-16] MEDS: REMDESIVIR 100MG/NS 100ML 100 MG IV SCH (13:42)
--- NOTE | 2020-02-16 15:48 | Progress Note ---
DATE: Pulmonary Critical Care Progress Note SUBJECTIVE: The patient is afebrile. He is having more dyspnea. He required 8 L of oxygen. PHYSICAL EXAMINATION: VITAL SIGNS: The blood pressure is 114/67, saturation is 91%, and the pulse is 62. HEENT: Shows no facial swelling or erythema. LYMPHATIC: Shows no submandibular, cervical, or supraclavicular adenopathy. CARDIAC: Reveals regular rate and rhythm with normal S1 and S2. LUNGS: Auscultation of lungs reveals decreased breath sounds at the bases. There is no wheezing. ABDOMEN: Soft and nontender. There is no rebound or guarding. EXTREMITIES: Show 1 to 2+ leg edema. LABORATORY DATA: White blood cell count is 14.2 and the hemoglobin is 15.1, and the platelet count is 419. The BUN to creatinine ratio is normal. The potassium is 3.6. The other electrolytes are within normal limits. The albumin is 2.7. IMPRESSION: 1. Viral pneumonia and COVID-19. 2. Hypertension. 3. Diabetes. PLAN: 1. Continue azithromycin and Rocephin. 2. Lovenox. 3. Dexamethasone. 4. Oxygen. 5. Continue remdesivir. Levar Rodriguez MD [facility]/MODL /[id number]
--- NOTE | 2020-02-16 16:07 | Progress Note ---
DATE: SUBJECTIVE: Mr. Johnson is feeling better. He said his breathing is better. He remains on 8 L. He is on remdesivir. No new complaints. His white count today was 14.2. REVIEW OF SYSTEMS: Otherwise, just fatigue and shortness of breath. PHYSICAL EXAMINATION: GENERAL: He is currently alert and oriented. VITAL SIGNS: Stable, currently afebrile. HEENT: He is not icteric. NECK: Supple. CHEST: Few crackles bilateral. HEART: S1 and S2. ABDOMEN: Soft. Bowel sounds present. EXTREMITIES: No edema. SKIN: There is no rash. IMPRESSION: COVID-19, respiratory failure, concern superimposed bacterial pneumonia. To finish remdesivir as ordered. To finish antibiotic as ordered. Dexamethasone as ordered. Diabetic control. We will follow. MD JANICE Villatoro/MODL /[id number]
--- NOTE | 2020-02-16 16:34 | NUR ---
patient sat 88-90% on 8L. respiratory at bedside to put patient on airvo machine.
[2020-02-16] MEDS: CEFTRIAXONE SOD 2 GM/NS 100 ML 100 ML IV SCH (20:07)
[2020-02-16] MEDS: BENZONATATE 100 MG CAP PO PRN (20:08)
[2020-02-16] MEDS: AZITHROMYCIN 500MG/NS 250 ML 250 ML IV SCH (20:52)
[2020-02-17] VITALS (16 sets, daily range): BP systolic 110–155; BP diastolic 57–101
[2020-02-17] MEDS: BENZONATATE 100 MG CAP PO PRN (06:26)
[2020-02-17] MEDS: HYDROCODONE/CHLORPHENIRAMINE 5 ML LIQCR PO PRN (06:26)
[2020-02-17] MEDS: INSULIN REGULAR, HUMAN 100 UNIT/1 ML 3ML VIAL SQ SCH ×4 (07:30→21:30)
[2020-02-17] MEDS: DOCUSATE SODIUM 100 MG CAP PO SCH ×2 (08:43→16:14)
[2020-02-17] MEDS: ASCORBIC ACID 500 MG TAB PO SCH ×2 (08:43→16:14)
[2020-02-17] MEDS: DEXAMETHASONE SOD PHOS INJ 4 MG/ML VIAL IV SCH (08:43)
[2020-02-17] MEDS: ZINC SULFATE 220 MG CAP PO SCH (08:43)
[2020-02-17] MEDS: CHOLECALCIFEROL 400 UNIT TAB PO SCH (08:43)
[2020-02-17] MEDS: FAMOTIDINE 20 MG/2 ML VIAL IV SCH ×2 (08:43→16:14)
[2020-02-17] MEDS: METFORMIN HCL 500 MG TAB PO SCH ×2 (08:43→16:14)
[2020-02-17] MEDS: ENOXAPARIN SOD INJ 40 MG/0.4 ML SYR SC SCH (08:43)
[2020-02-17 08:48] LABS: BASOPHILS % 0.2 % (0.0-1.0); EOSINOPHILS # (AUTO) 0.1 (0.0-0.4); EOSINOPHILS % 0.4 % (0.0-6.0); HEMATOCRIT 46.5 % (38.2-49.6); HEMOGLOBIN 14.9 g/dL (14.0-18.0); LYMPHOCYTES # (AUTO) 1.2 (1.0-3.2); LYMPHOCYTES % 7.3 % (18.0-39.1); MEAN CORPUSCULAR HEMOGLOBIN 27.9 pg (28-32); MEAN CORPUSCULAR VOLUME 86.9 fL (81-99); MONOCYTES # (AUTO) 0.9 (0.2-0.8); MONOCYTES % 5.1 % (4.4-11.3); NEUTROPHILS # (AUTO) 14.5 (2.1-6.9); NEUTROPHILS % 85.7 % (38.7-80.0); PLATELET COUNT 340 x10e3/uL (140-360); RED BLOOD COUNT 5.35 x10e6/uL (4.3-5.7); RED CELL DISTRIBUTION WIDTH 13.1 % (11.7-14.4)
--- NOTE | 2020-02-17 09:07 | NUR ---
DR. Diamond CAVAZOS IN TO SEE THE PT.
[2020-02-17 09:10] LABS: ALANINE AMINOTRANSFERASE 54 IU/L (0-55); ALBUMIN 2.6 g/dL (3.5-5.0); ALBUMIN/GLOBULIN RATIO 0.7 (0.8-2.0); ALKALINE PHOSPHATASE 63 IU/L (40-150); BLOOD UREA NITROGEN 16 mg/dL (7-26); BUN/CREATININE RATIO 26 (6-25); CALCIUM 8.2 mg/dL (8.4-10.2); CARBON DIOXIDE 24 mmol/L (22-29); CHLORIDE 106 mmol/L (98-107); CREATININE, SERUM 0.62 mg/dL (0.72-1.25); EST GLOMERULAR FILTRATION RATE > 60 ML/MIN (60-); GLUCOSE 103 mg/dL (74-118); SODIUM 140 mmol/L (136-145)
--- NOTE | 2020-02-17 09:46 | Progress Note ---
DATE: Pulmonary Critical Care Progress Note. SUBJECTIVE: The patient is requiring more oxygen. He is now on an Airvo at 40 L with 80% oxygen. He complains of occasional cough. He is not having any chest pain. He has no fevers. PHYSICAL EXAMINATION: VITAL SIGNS: Blood pressure is 155/101, saturation is 90%, and the pulse is 63. HEENT: Shows no facial swelling or erythema. LYMPHATIC: Shows no submandibular, cervical, supraclavicular adenopathy. CARDIAC: Reveals regular rate and rhythm with normal S1, S2. LUNGS: Auscultation of lungs reveals crackles at the bases. There is no wheezing. ABDOMEN: Soft and nontender. There is no rebound or guarding. EXTREMITIES: Shows no leg edema or calf tenderness. There is no cyanosis or clubbing. SKIN: Shows no rashes. NEUROLOGICAL: Shows no focal abnormalities. LABORATORY DATA: White blood cell count is 16.9, hemoglobin is 14.9, and platelet count is 340. BUN to creatinine ratio is normal. The other electrolytes are within normal limits and the albumin is 2.6. IMPRESSION: 1. Viral pneumonia and COVID-19 infection. 2. Diabetes. 3. Hypertension. PLAN: 1. Continue Zithromax and Rocephin. 2. Continue Lovenox. 3. Dexamethasone. 4. Oxygen. 5. Continue remdesivir. 6. Transfer to intensive care unit for close observation. Levar Rodriguez MD [facility]/MODL /[id number]
--- NOTE | 2020-02-17 10:38 | Diagnostic Imaging Report ---
EXAMINATION: CHEST SINGLE (PORTABLE) INDICATION: viral pneumonia COMPARISON: Multiple prior chest radiographs including most recent on 02/14/2020. FINDINGS: TUBES and LINES: None. LUNGS: Interval worsening of multifocal interstitial and airspace opacities throughout both lungs. PLEURA: No pleural effusion or pneumothorax. HEART AND MEDIASTINUM: The cardiomediastinal silhouette is mildly enlarged. BONES AND SOFT TISSUES: No acute osseous lesion. Soft tissues are unremarkable. UPPER ABDOMEN: No free air under the diaphragm. IMPRESSION: Interval worsening of interstitial and airspace opacities throughout both lungs most compatible with worsening pneumonia. Signed by: Estevan Herr MD on 02/17/2020 10:34 AM
--- NOTE | 2020-02-17 11:14 | NUR ---
r.t. in room. placed laying on his left side. nrb at bedside
--- NOTE | 2020-02-17 11:36 | NUR ---
tx pt. to icu 190
[2020-02-17] MEDS: REMDESIVIR 100MG/NS 100ML 100 MG IV SCH (14:20)
[2020-02-17] MEDS: CEFTRIAXONE SOD 2 GM/NS 100 ML 100 ML IV SCH (20:00)
[2020-02-17] MEDS: AZITHROMYCIN 500MG/NS 250 ML 250 ML IV SCH (21:00)
[2020-02-18] VITALS (25 sets, daily range): BP systolic 111–142; BP diastolic 68–103
--- NOTE | 2020-02-18 02:34 | Progress Note ---
DATE: 02/17/2020 CONSULTING PHYSICIANS: Dr. Mechelle Sanchez with Infectious Disease and Dr. Levar Rodriguez with Pulmonology/Critical Care Medicine. SUBJECTIVE/EVENTS OVERNIGHT: The patient was transferred to bed 190 in ICU from [facility] bed 199 due to increased oxygen requirements necessitating being placed on Airvo 40 L/minute with FiO2 of 86%. Subsequently, after transfer to ICU, the Airvo was changed to Vapotherm with similar settings at 40 L/minute and an FiO2 of 80%. The patient still has cough off and on, getting headaches at times. Otherwise, no new complaints. OBJECTIVE: VITAL SIGNS: Temperature 98.9, pulse is 63, blood pressure 155/101, respirations 22, oxygen saturation 90%. Intake and output not recorded. GENERAL: Supine in bed, asleep, easily arousable, not coughing during the counter. LUNGS: Rhonchi bilaterally without wheezing. HEENT: EOMI. NECK: Supple. CARDIOVASCULAR: Regular rate and rhythm without murmur. ABDOMEN: Bowel sounds positive. Soft, nontender, obese. EXTREMITIES: With no pitting edema. No signs of DVT. NEUROLOGICAL: GCS 15. Nonfocal. LABORATORY DATA: WBCs 16.9, hemoglobin 14.9, hematocrit 46.5, platelets 340. Sodium 140, potassium 4.0, chloride 106, CO2 of 24, BUN 16, creatinine 0.62, estimated GFR greater than 60, glucose 103. Fingerstick blood glucose levels of 205, 217, calcium 8.2, total bilirubin 0.3, AST 50, ALT 54, alkaline phosphatase 63, total protein 6.5, albumin 2.6, globulin 3.9. IMAGING/OTHER: Chest x-ray today showed interval worsening of interstitial and airspace opacities throughout both lungs, most compatible with worsening pneumonia. ASSESSMENT AND PLAN: 1. COVID-19 with viral pneumonia and concern for superimposed bacterial pneumonia. Continue Rocephin and azithromycin, remdesivir, dexamethasone, Lovenox, vitamin C, zinc sulfate, cholecalciferol. Appreciate recommendations from Pulmonology and Infectious Disease. Wean supplemental oxygen as tolerated. The patient moved to the ICU in an abundance of caution. Avoid intubation if possible. Continue Tessalon Perles and Tussionex p.r.n. for cough. 2. Controlled hypertension. Blood pressure 155/101 this morning. Most recently documented blood pressure 146/91. Maintain pain control. 3. Controlled type 2 diabetes mellitus. Serum glucose 103. Continue ADA diet and home dose of metformin. Monitor fingerstick blood glucose levels. 4. Obesity with BMI of 34.45. Dietary restrictions. 5. Prophylaxis. Lovenox and Pepcid. Inpatient, billing code [id number], time spent greater than 35 minutes. Dictated by Marvin Mcgowan, JOE MD [place] Marie/MODL /[id number]
[2020-02-18] MEDS: HYDROCODONE/CHLORPHENIRAMINE 5 ML LIQCR PO PRN ×2 (04:15→15:38)
[2020-02-18 04:59] LABS: BASOPHILS % 0.2 % (0.0-1.0); EOSINOPHILS % 0.3 % (0.0-6.0); HEMATOCRIT 45.8 % (38.2-49.6); HEMOGLOBIN 15.2 g/dL (14.0-18.0); LYMPHOCYTES # (AUTO) 1.2 (1.0-3.2); LYMPHOCYTES % 7.5 % (18.0-39.1); MEAN CORPUSCULAR HEMOGLOBIN 27.8 pg (28-32); MEAN CORPUSCULAR HGB CONC 33.2 g/dL (31-35); MEAN CORPUSCULAR VOLUME 83.7 fL (81-99); MONOCYTES # (AUTO) 0.7 (0.2-0.8); MONOCYTES % 4.5 % (4.4-11.3); NEUTROPHILS # (AUTO) 13.4 (2.1-6.9); NEUTROPHILS % 85.9 % (38.7-80.0); PLATELET COUNT 251 x10e3/uL (140-360); RED BLOOD COUNT 5.47 x10e6/uL (4.3-5.7); RED CELL DISTRIBUTION WIDTH 12.8 % (11.7-14.4)
[2020-02-18 05:21] LABS: ALANINE AMINOTRANSFERASE 50 IU/L (0-55); ALBUMIN 2.7 g/dL (3.5-5.0); ALBUMIN/GLOBULIN RATIO 0.7 (0.8-2.0); ALKALINE PHOSPHATASE 67 IU/L (40-150); ANION GAP 13.1 mmol/L (8-16); BLOOD UREA NITROGEN 12 mg/dL (7-26); BUN/CREATININE RATIO 20 (6-25); CALCIUM 8.2 mg/dL (8.4-10.2); CARBON DIOXIDE 24 mmol/L (22-29); CHLORIDE 105 mmol/L (98-107); CREATININE, SERUM 0.61 mg/dL (0.72-1.25); EST GLOMERULAR FILTRATION RATE > 60 ML/MIN (60-); GLUCOSE 117 mg/dL (74-118); POTASSIUM 4.1 mmol/L (3.5-5.1); SODIUM 138 mmol/L (136-145)
--- NOTE | 2020-02-18 06:03 | Diagnostic Imaging Report ---
EXAMINATION: CHEST SINGLE (PORTABLE) INDICATION: ^Resp Distress ^[id number] ^[id number] ^Y COMPARISON: Multiple prior chest radiographs including most recent on 02/14/2020. FINDINGS: TUBES and LINES: None. LUNGS: Similar appearance of multifocal interstitial and airspace opacities throughout both lungs. PLEURA: No pleural effusion or pneumothorax. HEART AND MEDIASTINUM: The cardiomediastinal silhouette is mildly enlarged. BONES AND SOFT TISSUES: No acute osseous lesion. Soft tissues are unremarkable. UPPER ABDOMEN: No free air under the diaphragm. IMPRESSION: Similar appearance of diffuse airspace disease. Signed by: Landry Watson DO on 02/18/2020 5:59 AM
[2020-02-18] MEDS: DEXAMETHASONE SOD PHOS INJ 4 MG/ML VIAL IV SCH (08:22)
[2020-02-18] MEDS: METFORMIN HCL 500 MG TAB PO SCH ×2 (08:22→17:23)
[2020-02-18] MEDS: DOCUSATE SODIUM 100 MG CAP PO SCH ×2 (08:22→17:22)
[2020-02-18] MEDS: INSULIN REGULAR, HUMAN 100 UNIT/1 ML 3ML VIAL SQ SCH ×4 (08:22→21:15)
[2020-02-18] MEDS: FAMOTIDINE 20 MG/2 ML VIAL IV SCH ×2 (08:22→17:22)
[2020-02-18] MEDS: ENOXAPARIN SOD INJ 40 MG/0.4 ML SYR SC SCH (08:23)
[2020-02-18] MEDS: CHOLECALCIFEROL 400 UNIT TAB PO SCH (08:23)
[2020-02-18] MEDS: ACETAMINOPHEN 325 MG TAB PO PRN ×3 (08:23→22:43)
[2020-02-18] MEDS: ZINC SULFATE 220 MG CAP PO SCH (08:23)
[2020-02-18] MEDS: ASCORBIC ACID 500 MG TAB PO SCH ×2 (08:23→17:23)
--- NOTE | 2020-02-18 08:46 | Progress Note ---
DATE: SUBJECTIVE: The patient is on Airvo. He is on 80% oxygen with 40 L. PHYSICAL EXAMINATION: VITAL SIGNS: Blood pressure is 135/74 and the pulse ox is 95%. The pulse is 76. HEENT: Shows no facial swelling or erythema. LYMPHATIC: Shows no submandibular, cervical, or supraclavicular adenopathy. CARDIAC: Reveals regular rate and rhythm with normal S1 and S2. LUNGS: Auscultation of lungs reveals crackles and rhonchi bilaterally. There is no wheezing. ABDOMEN: Soft and nontender. There is no rebound or guarding. EXTREMITIES: Shows no leg edema or calf tenderness. There is no cyanosis or clubbing. SKIN: Shows no rashes. NEUROLOGICAL: Shows no focal abnormalities. LABORATORY DATA: Blood glucose is 131 and BUN to creatinine ratio is normal. Other electrolytes are within normal limits. Albumin is 2.7 and the hemoglobin is 15.2. The platelet count is 251. White blood cell count is 15.6. RADIOGRAPHIC DATA: Chest x-ray shows bilateral infiltrates. IMPRESSION: 1. Acute respiratory failure. 2. COVID-19 and viral pneumonia. 3. Hypertension. 4. Diabetes. PLAN: 1. Continue Zithromax and Rocephin. 2. Continue Lovenox. 3. Dexamethasone. 4. Oxygen. 5. Complete remdesivir. 6. Continue Airvo. 7. Speech therapy evaluation to rule out any silent aspiration. 8. Physical therapy. Levar Rodriguez MD [facility]/MODL /[id number]
--- NOTE | 2020-02-18 11:05 | NUR ---
INFECTIOUS DISEASE PROGRESS NOTE DR. CORINE PIMENTEL SUBJECTIVE: Mr. Johnson is feeling better. He said his breathing is better. He remains on 8 L. He is on remdesivir. No new complaints. REVIEW OF SYSTEMS: fatigue and shortness of breath ALL ROS NOTED AND PERTINENT POSITIVES LISTED ABOVE PHYSICAL EXAMINATION: GENERAL: He is currently alert and oriented. VITAL SIGNS: in ICU HEENT: He is not icteric. normocephalic NECK: Supple. no JVD CHEST: Few crackles bilateral. symmetric expansion HEART: S1 and S2. no rub ABDOMEN: Soft. non-tender, Bowel sounds present. EXTREMITIES: No edema. moves all SKIN: There is no rash. IMPRESSION: COVID-19 respiratory failure concern superimposed bacterial pneumonia. PLAN finish remdesivir as ordered. To finish antibiotic as ordered. Dexamethasone as ordered. Diabetic control. Darling Javed MSN, [employer], AGACNP-BC d/w Corine Pimentel M.D
[2020-02-18] MEDS: BENZONATATE 100 MG CAP PO PRN (12:34)
[2020-02-18] MEDS: REMDESIVIR 100MG/NS 100ML 100 MG IV SCH (14:13)
[2020-02-18] MEDS: CEFTRIAXONE SOD 2 GM/NS 100 ML 100 ML IV SCH (21:09)
[2020-02-18] MEDS: AZITHROMYCIN 500MG/NS 250 ML 250 ML IV SCH (21:09)
--- NOTE | 2020-02-18 22:43 | NUR ---
Medicated for c/o headache with Tylenol.
[2020-02-19] VITALS (14 sets, daily range): BP systolic 116–139; BP diastolic 62–91
[2020-02-19 06:24] LABS: BASOPHILS # (AUTO) 0.1 (0.0-0.1); BASOPHILS % 0.3 % (0.0-1.0); EOSINOPHILS # (AUTO) 0.3 (0.0-0.4); EOSINOPHILS % 1.6 % (0.0-6.0); HEMATOCRIT 45.1 % (38.2-49.6); HEMOGLOBIN 15.1 g/dL (14.0-18.0); LYMPHOCYTES % 5.3 % (18.0-39.1); MEAN CORPUSCULAR HEMOGLOBIN 27.9 pg (28-32); MEAN CORPUSCULAR HGB CONC 33.5 g/dL (31-35); MEAN CORPUSCULAR VOLUME 83.2 fL (81-99); MONOCYTES # (AUTO) 0.6 (0.2-0.8); MONOCYTES % 3.2 % (4.4-11.3); NEUTROPHILS # (AUTO) 15.8 (2.1-6.9); NEUTROPHILS % 88.1 % (38.7-80.0); PLATELET COUNT 195 x10e3/uL (140-360); RED BLOOD COUNT 5.42 x10e6/uL (4.3-5.7)
[2020-02-19 06:41] LABS: ALANINE AMINOTRANSFERASE 52 IU/L (0-55); ALBUMIN 2.6 g/dL (3.5-5.0); ALBUMIN/GLOBULIN RATIO 0.7 (0.8-2.0); ALKALINE PHOSPHATASE 69 IU/L (40-150); BLOOD UREA NITROGEN 13 mg/dL (7-26); BUN/CREATININE RATIO 21 (6-25); CALCIUM 8.3 mg/dL (8.4-10.2); CARBON DIOXIDE 25 mmol/L (22-29); CHLORIDE 103 mmol/L (98-107); CREATININE, SERUM 0.61 mg/dL (0.72-1.25); EST GLOMERULAR FILTRATION RATE > 60 ML/MIN (60-); GLUCOSE 100 mg/dL (74-118); SODIUM 135 mmol/L (136-145)
[2020-02-19] MEDS: INSULIN REGULAR, HUMAN 100 UNIT/1 ML 3ML VIAL SQ SCH ×4 (07:30→21:16)
--- NOTE | 2020-02-19 08:16 | Progress Note ---
DATE: Pulmonary Progress Note SUBJECTIVE: The patient is not complaining of any distress. He is not tachypneic. He remains on Vapotherm at 40 L with 100%. PHYSICAL EXAMINATION: VITAL SIGNS: Blood pressure is 133/90, saturation is 96%, pulse is 102, T-max is 99.6, and respiratory rate is 23. HEENT: Shows no facial swelling or erythema. LYMPHATIC: Shows no submandibular, cervical, or supraclavicular adenopathy. CARDIAC: Reveals regular rate and rhythm. Normal S1, S2. LUNGS: Auscultation of lungs reveals rhonchorous breath sounds bilaterally. There is no wheezing. ABDOMEN: Soft, nontender. There is no rebound or guarding. EXTREMITIES: Show no leg edema or calf tenderness. There is no cyanosis or clubbing. SKIN: Shows no rashes. NEUROLOGIC: Shows no focal abnormalities. LABORATORY DATA: White blood cell count is 17.95, hemoglobin is 15.1, and the platelet count is 195. BUN to creatinine ratio is normal. Other electrolytes are within normal limits. Albumin is 2.6. RADIOGRAPHIC DATA: Chest x-ray shows bilateral pulmonary infiltrates. IMPRESSION: 1. Acute respiratory failure. 2. Viral pneumonia and COVID-19. 3. Hypertension. 4. Diabetes. PLAN: 1. Continue Zithromax and Rocephin. 2. Continue Lovenox. 3. Dexamethasone. 4. Oxygen. 5. Complete remdesivir. 6. Continue Vapotherm. Levar Rodriguez MD [facility]/MODL /[id number]
--- NOTE | 2020-02-19 08:19 | Diagnostic Imaging Report ---
EXAM: CHEST SINGLE (PORTABLE) DATE: 02/19/2020 5:44 AM INDICATION: Respiratory distress COMPARISON: 02/18/2020 FINDINGS: There are patchy airspace opacities identified throughout the lungs bilaterally, unchanged from the prior examination. There is no evidence for pneumothorax or significant bone pleural effusion. The cardiomediastinal silhouette is stable in appearance. No acute osseous abnormalities identified. IMPRESSION: No significant interval change from 02/18/2020. Stable appearing airspace opacities identified throughout the lungs bilaterally. Signed by: Dr. Brooks Duong MD on 02/19/2020 8:16 AM
--- NOTE | 2020-02-19 08:51 | Progress Note ---
DATE: 02/18/2020 CONSULTING PHYSICIANS: Dr. Mechelle Sanchez with Infectious Disease and Dr. Levar Rodriguez with Pulmonology/Critical Care Medicine. SUBJECTIVE: The patient remains in ICU bed 190. He desaturates with minimal exertion. Reports feeling tired, headache rated 7/10 on a 0-10 pain scale. Cough is a bit better. He says his last bowel movement was 2 days ago. OBJECTIVE: VITAL SIGNS: Temperature 98.7, pulse 75, blood pressure 124/60, respirations 18, and oxygen saturation 99%. GENERAL: Supine in no acute distress. LUNGS: Rhonchi bilaterally. Vapotherm at 40 L/minute with FiO2 of 100%. HEENT: EOMI. NECK: Supple. CARDIOVASCULAR: Regular rate and rhythm. No murmur. ABDOMEN: Bowel sounds positive. Soft, nontender. EXTREMITIES: No pitting edema. No clubbing, cyanosis, or signs of DVT. NEUROLOGIC: GCS 15. Nonfocal. LABORATORY DATA: WBC 15.65, hemoglobin 15.2, hematocrit 45.8, platelets 251, neutrophils 85.9%. Sodium 138, potassium 4.1, chloride 105, CO2 of 24, BUN 12, creatinine 0.61, estimated GFR greater than 60, glucose 117, calcium 8.2, total bilirubin 0.5, AST 41, ALT 50, alkaline phosphatase 67, total protein 6.5, albumin 2.7, globulin 3.8. Fingerstick blood glucose levels 131, 177, 160. IMAGING/OTHER: Chest x-ray similar appearance of diffuse airspace disease. ASSESSMENT AND PLAN: 1. COVID-19 with viral pneumonia. Continue Rocephin as per Infectious Disease recommendations. Complete remdesivir. Continue anticoagulation with Lovenox. Continue dexamethasone vitamin C, zinc sulfate, cholecalciferol. Wean supplemental oxygen as tolerated. Tussionex seems to be helping cough. Monitor oxygen saturation closely. Encouraged proning and general physical mobility as the patient tolerates. 2. Controlled hypertension. Continue home dose of triamterene and hydrochlorothiazide. Monitor blood pressure. 3. Controlled type 2 diabetes mellitus. Serum glucose 117. Obesity with BMI of 34.45. Dietary restrictions. 4. Acute hypophosphatemia, improving. Sodium level 138 (135, 133). Monitor sodium level. 5. Prophylaxis. Lovenox and Pepcid. Inpatient, billing code [id number], time spent greater than 35 minutes. Dictated by Marvin Mcgowan, CHANNEL PROCESS SUPERVISOR MD [place] Marie/RYDER /[id number]
[2020-02-19] MEDS: DOCUSATE SODIUM 100 MG CAP PO SCH ×2 (11:57→18:00)
[2020-02-19] MEDS: DEXAMETHASONE SOD PHOS INJ 4 MG/ML VIAL IV SCH (11:57)
[2020-02-19] MEDS: FAMOTIDINE 20 MG/2 ML VIAL IV SCH ×2 (11:57→18:00)
[2020-02-19] MEDS: ASCORBIC ACID 500 MG TAB PO SCH ×2 (11:57→18:00)
[2020-02-19] MEDS: CHOLECALCIFEROL 400 UNIT TAB PO SCH (11:57)
[2020-02-19] MEDS: ZINC SULFATE 220 MG CAP PO SCH (11:57)
[2020-02-19] MEDS: METFORMIN HCL 500 MG TAB PO SCH (11:57)
[2020-02-19] MEDS: ENOXAPARIN SOD INJ 40 MG/0.4 ML SYR SC SCH ×2 (11:57→21:15)
[2020-02-19] MEDS: ACETAMINOPHEN 325 MG TAB PO PRN ×2 (13:00→19:54)
[2020-02-19] MEDS: HYDROCODONE/CHLORPHENIRAMINE 5 ML LIQCR PO PRN ×2 (13:01→21:16)
[2020-02-19] MEDS: REMDESIVIR 100MG/NS 100ML 100 MG IV SCH (14:59)
--- NOTE | 2020-02-19 17:30 | NUR ---
Dr. Rodriguez at bedside. Updated assessment findings. Patient now with NRB along with Vapotherm. Patient with desaturation with movement and sats taking longer to increase despite prone position. No new orders at his time.
--- NOTE | 2020-02-19 19:00 | NUR ---
Bedside report received from Jemima TUCKER. Per report aware of pts SPO2% 85-89% with orders to continue current treatment and no new orders.
[2020-02-19] MEDS: BENZONATATE 100 MG CAP PO PRN (19:54)
[2020-02-19] MEDS: CEFTRIAXONE SOD 2 GM/NS 100 ML 100 ML IV SCH (21:15)
[2020-02-19] MEDS: AZITHROMYCIN 500MG/NS 250 ML 250 ML IV SCH (21:15)
--- NOTE | 2020-02-19 22:01 | NUR ---
Pts SPO2% staying 84-85%. Pt assisted to prone position at this time.
[2020-02-19] MEDS ORDERED: DEXTROSE 50% SYRINGE 50 ML IV ONE (23:33)
[2020-02-20] VITALS (26 sets, daily range): BP systolic 100–152; BP diastolic 59–111
--- NOTE | 2020-02-20 01:00 | NUR ---
Pt coughing. Pt assisted to sitting on side of bed with table in front of him. Pt reports he, "just needs to sit up for a little bit." Pt coughing slowly subsided and highest SPO2% observed 97% but fluctuated between 85-97% between breathing and coughing spells.
--- NOTE | 2020-02-20 02:45 | NUR ---
Pts SPO2% 82-84%. Pt instructed to pronate. SPO2% now 88%.
--- NOTE | 2020-02-20 03:03 | NUR ---
Pt remains in prone position and SPO2% is now 91%.
--- NOTE | 2020-02-20 04:27 | NUR ---
Division Controller present and drawing AM blood lab specimens at this time.
[2020-02-20 04:40] LABS: BASOPHILS # (AUTO) 0.1 (0.0-0.1); BASOPHILS % 0.2 % (0.0-1.0); EOSINOPHILS # (AUTO) 0.2 (0.0-0.4); EOSINOPHILS % 0.9 % (0.0-6.0); LYMPHOCYTES # (AUTO) 0.6 (1.0-3.2); LYMPHOCYTES % 2.9 % (18.0-39.1); MEAN CORPUSCULAR HEMOGLOBIN 27.8 pg (28-32); MEAN CORPUSCULAR HGB CONC 33.3 g/dL (31-35); MEAN CORPUSCULAR VOLUME 83.3 fL (81-99); MONOCYTES # (AUTO) 0.5 (0.2-0.8); MONOCYTES % 2.5 % (4.4-11.3); NEUTROPHILS # (AUTO) 18.9 (2.1-6.9); PLATELET COUNT 195 x10e3/uL (140-360)
[2020-02-20] MEDS: ACETAMINOPHEN 325 MG TAB PO PRN ×4 (04:50→21:25)
[2020-02-20 05:06] LABS: ALANINE AMINOTRANSFERASE 39 IU/L (0-55); ALBUMIN 2.5 g/dL (3.5-5.0); ALBUMIN/GLOBULIN RATIO 0.6 (0.8-2.0); ALKALINE PHOSPHATASE 76 IU/L (40-150); ANION GAP 12.1 mmol/L (8-16); BLOOD UREA NITROGEN 10 mg/dL (7-26); BUN/CREATININE RATIO 17 (6-25); CALCIUM 8.3 mg/dL (8.4-10.2); CARBON DIOXIDE 25 mmol/L (22-29); CHLORIDE 103 mmol/L (98-107); CREATININE, SERUM 0.59 mg/dL (0.72-1.25); EST GLOMERULAR FILTRATION RATE > 60 ML/MIN (60-); GLUCOSE 122 mg/dL (74-118); POTASSIUM 4.1 mmol/L (3.5-5.1); SODIUM 136 mmol/L (136-145)
[2020-02-20] MEDS: BENZONATATE 100 MG CAP PO PRN (08:00)
[2020-02-20] MEDS: FAMOTIDINE 20 MG/2 ML VIAL IV SCH ×2 (08:09→16:06)
[2020-02-20] MEDS: DOCUSATE SODIUM 100 MG CAP PO SCH ×2 (08:09→16:06)
[2020-02-20] MEDS: CHOLECALCIFEROL 400 UNIT TAB PO SCH (08:09)
[2020-02-20] MEDS: ZINC SULFATE 220 MG CAP PO SCH (08:09)
[2020-02-20] MEDS: DEXAMETHASONE SOD PHOS INJ 4 MG/ML VIAL IV SCH (08:09)
[2020-02-20] MEDS: ENOXAPARIN SOD INJ 40 MG/0.4 ML SYR SC SCH ×2 (08:09→20:00)
[2020-02-20] MEDS: ASCORBIC ACID 500 MG TAB PO SCH ×2 (08:09→16:05)
[2020-02-20] MEDS: INSULIN REGULAR, HUMAN 100 UNIT/1 ML 3ML VIAL SQ SCH ×4 (08:10→21:00)
--- NOTE | 2020-02-20 08:45 | Diagnostic Imaging Report ---
X-ray chest frontal view History: Covid. Respiratory failure Comparison: 02/18/2020 Findings: Apical lordotic positioning. Lines and tubes: Not applicable Central airways: Unremarkable Cardiac silhouette: Likely cardiomegaly Mediastinal silhouettes: Unremarkable Pleura: No significant change Diaphragms: As above Lungs: Diffuse bilateral pulmonary infiltrates with significant worsening compared with the previous exam and involve all zones and segments of the left lung and most zones and segments of the right lung. Skeletal structures: Unremarkable Extrathoracic soft tissues: No change Impression: Significant worsening of the bilateral pulmonary infiltrates. Signed by: Roderick Morin MD on 02/20/2020 8:42 AM
--- NOTE | 2020-02-20 08:52 | Progress Note ---
DATE: SUBJECTIVE: The patient is having some coughing. He desaturates with coughing. He is not having any fevers. PHYSICAL EXAMINATION: VITAL SIGNS: He is currently on AIRVO at 40 L with 100% FiO2. He also has a non-rebreather superimposed over the Vapotherm. Blood pressure is 113/88, saturation is 95%, respiratory rate is 22, and the pulse is 87. HEENT: Shows no facial swelling or erythema. LYMPHATIC: Shows no submandibular, cervical, or supraclavicular adenopathy. CARDIAC: Reveals regular rate and rhythm with normal S1 and S2. LUNGS: Auscultation of lungs reveals crackles and rhonchi bilaterally. There is no wheezing. ABDOMEN: Soft and nontender. There is no rebound or guarding. EXTREMITIES: No leg edema or calf tenderness. There is no cyanosis or clubbing. LABORATORY DATA: White blood cell count is 20.53, hemoglobin is 15, and platelet count is 195. BUN to creatinine ratio is normal. Other electrolytes are within normal limits. The albumin is 2.5. IMPRESSION: 1. Acute respiratory failure. 2. Viral pneumonia, COVID-19. 3. Hypertension. 4. Diabetes. PLAN: 1. Continue Zithromax and Rocephin. 2. Continue Lovenox. 3. Tussionex cough syrup. 4. Complete dexamethasone. 5. Continue current oxygen. Levar Rodriguez MD [facility]/MODL /[id number]
[2020-02-20] MEDS: HYDROCODONE/CHLORPHENIRAMINE 5 ML LIQCR PO PRN ×3 (09:05→22:00)
--- NOTE | 2020-02-20 10:04 | NUR ---
in icu 30 L 100non r
--- NOTE | 2020-02-20 15:54 | NUR ---
Nutrition Intervention Note RD Recommendation(s) for Physician: -Continue current diet as ordered -Recommend Glucerna nutrition supplement BID for added nutrition Plan of Care: RD following, monitoring for tolerance and adequacy, oral supplement recommendation Nutrition reason for involvement: length of stay RD Assessment (02/20/20) Pt is a 50 year old male admitted with hypoxia and pneumonia due to COVID-19. MD note indicated pt is on a nonrebreather superimposed on vapotherm. Unable to enter room due to isolation precautions. There are no reports of recent unintentional weight loss or decreased appetite upon admission. RN reports pt only ate about 25% of breakfast this morning. Pt was previously consuming 50-75% of meals per chart. Pt has varied weights ranging from 220-237 lbs in chart for this admission. Recommend Glucerna nutrition supplement BID for added nutrition. Will continue to monitor. Principal Problems/Diagnoses: hypoxia and pneumonia due to COVID-19 PMH: Diabetes mellitus, hypertension, and obesity. GI: non-tender abdomen, last recorded BM 02/15 Skin: intact Labs: (02/19) Na 136, K 4.1, BUN 10, Cr 0.59, Glu 122, Ca 8.3 Meds: insulin, vitamin C, dexmethasone, vitamin D, pepcid, colace, antibiotics, metoprolol, zofran, Ht: 67 in Wt: 220 lbs (admit wt) BMI: 34.5 kg/m2 IBW: 148 lbs Malnutrition Evaluation (02/20/20) The patient does not meet criteria for a specified degree of malnutrition at this time. Will re-evaluate at follow-up as appropriate. Nutrition Prescription (Diet Order): 1800 ADA Estimated Nutritional Needs: 7362-0331 calories/day (22-25 kcal/kg IBW) 100-135 g protein/day (1.5-2 g pro/kg IBW) Diet Adequacy: Not meeting calorie needs, Not meeting protein needs Tolerance: Tolerating PO Diet Education Needs Assessment: Diet education not indicated Nutrition Care Level: low Nutrition Diagnosis: Inadequate energy intake related to decreased ability to consume sufficient energy as evidenced by estimated energy intake from diet less than needs. Goal: Patient will meet 75-100% of estimated needs by follow up Progress: N/A Interventions: -carbohydrate -modified diet, Commercial beverage Monitoring/Evaluation: -Total energy intake, Total protein intake, Modified diet, Liquid supplement, Weight change Signed: Padma Bell RD, LD
[2020-02-20] MEDS: PIPER-TAZ 3.375 GM 50 ML IV SCH ×2 (17:05→23:30)
--- NOTE | 2020-02-20 18:15 | Progress Note ---
DATE: SUBJECTIVE: The patient remains in intensive care unit. He is on 30 L 100% non-rebreather. The patient is weak. He still has coughing cough. He is currently on Airvo 40 L with 100% FiO2 non-rebreather supplement. PHYSICAL EXAMINATION: VITAL SIGNS: Blood pressure 113/88, O2 saturation 95%, respiration 22. Vital signs stable, current afebrile. GENERAL: He is alert, but weak. HEENT: He is not icteric. NECK: Supple. Chest: Few crackles. HEART: S1, S2. ABDOMEN: Soft. Bowel sounds present. EXTREMITIES: No edema. IMPRESSION: Respiratory failure COVID-19, hypertension, and diabetes mellitus. Continue supportive care. Of concern his white count is 20.5, sodium 136, potassium 4.1. He is currently on Dostinex, insulin Lovenox, and dexamethasone. I am going to stop his Rocephin and azithromycin, change him to Zosyn . Recheck CBC. We will follow. MD JANICE Villatoro/MODL /[id number]
[2020-02-20] MEDS: DEXMEDETOMIDINE 200MCG/NS 50ML 50 ML IV PRN ×2 (19:15→23:30)
--- NOTE | 2020-02-20 19:15 | NUR ---
Patient's O2 sats 82-85%. Educated patient on importance of prone positioning. Patient verbalized understanding and all questions answered. Addendum: 02/20/20 at 3 by Ankita Cedeño RN Call light placed within patient's reach.
[2020-02-21] VITALS (25 sets, daily range): BP systolic 91–138; BP diastolic 59–99
[2020-02-21] MEDS: DEXMEDETOMIDINE 200MCG/NS 50ML 50 ML IV PRN ×4 (04:00→21:26)
[2020-02-21 04:47] LABS: BASOPHILS % 0.1 % (0.0-1.0); EOSINOPHILS # (AUTO) 0.1 (0.0-0.4); EOSINOPHILS % 0.4 % (0.0-6.0); HEMATOCRIT 44.7 % (38.2-49.6); LYMPHOCYTES # (AUTO) 0.5 (1.0-3.2); LYMPHOCYTES % 2.2 % (18.0-39.1); MEAN CORPUSCULAR HEMOGLOBIN 28.5 pg (28-32); MEAN CORPUSCULAR HGB CONC 33.6 g/dL (31-35); MEAN CORPUSCULAR VOLUME 84.8 fL (81-99); MONOCYTES # (AUTO) 0.5 (0.2-0.8); MONOCYTES % 2.3 % (4.4-11.3); NEUTROPHILS # (AUTO) 19.2 (2.1-6.9); NEUTROPHILS % 93.8 % (38.7-80.0); PLATELET COUNT 181 x10e3/uL (140-360); RED BLOOD COUNT 5.27 x10e6/uL (4.3-5.7)
[2020-02-21 05:05] LABS: ALANINE AMINOTRANSFERASE 42 IU/L (0-55); ALBUMIN 2.3 g/dL (3.5-5.0); ALBUMIN/GLOBULIN RATIO 0.5 (0.8-2.0); ALKALINE PHOSPHATASE 86 IU/L (40-150); ANION GAP 14.8 mmol/L (8-16); BLOOD UREA NITROGEN 15 mg/dL (7-26); BUN/CREATININE RATIO 23 (6-25); CALCIUM 8.4 mg/dL (8.4-10.2); CARBON DIOXIDE 24 mmol/L (22-29); CHLORIDE 102 mmol/L (98-107); CREATININE, SERUM 0.64 mg/dL (0.72-1.25); EST GLOMERULAR FILTRATION RATE > 60 ML/MIN (60-); GLUCOSE 145 mg/dL (74-118); POTASSIUM 4.8 mmol/L (3.5-5.1); SODIUM 136 mmol/L (136-145)
[2020-02-21] MEDS: PIPER-TAZ 3.375 GM 50 ML IV SCH ×4 (06:24→23:15)
[2020-02-21] MEDS: HYDROCODONE/CHLORPHENIRAMINE 5 ML LIQCR PO PRN ×2 (07:21→15:00)
[2020-02-21] MEDS: DOCUSATE SODIUM 100 MG CAP PO SCH ×2 (08:03→16:01)
[2020-02-21] MEDS: DEXAMETHASONE SOD PHOS INJ 4 MG/ML VIAL IV SCH (08:03)
[2020-02-21] MEDS: ZINC SULFATE 220 MG CAP PO SCH (08:03)
[2020-02-21] MEDS: FAMOTIDINE 20 MG/2 ML VIAL IV SCH ×2 (08:03→16:01)
[2020-02-21] MEDS: ASCORBIC ACID 500 MG TAB PO SCH ×2 (08:03→16:01)
[2020-02-21] MEDS: ENOXAPARIN SOD INJ 40 MG/0.4 ML SYR SC SCH ×2 (08:03→21:24)
[2020-02-21] MEDS: CHOLECALCIFEROL 400 UNIT TAB PO SCH (08:03)
[2020-02-21] MEDS: INSULIN REGULAR, HUMAN 100 UNIT/1 ML 3ML VIAL SQ SCH ×4 (08:04→21:00)
--- NOTE | 2020-02-21 08:27 | Progress Note ---
DATE: Pulmonary Critical Care Progress Note SUBJECTIVE: The patient is afebrile. The patient is still requiring AIRVO at 60 L and maximum oxygen as well as superimposed non-rebreather. He has some coughing episodes and increase desaturations. OBJECTIVE: VITAL SIGNS: Blood pressure is 114/77, saturation is 88% on 15 L and the pulse is 87. HEENT: Shows no facial swelling or erythema. LYMPHATIC: Shows no submandibular, cervical, or supraclavicular adenopathy. CARDIAC: Reveals regular rate and rhythm. Normal S1, S2. LUNGS: Auscultation of lungs reveals crackles at the bases. There is no wheezing. ABDOMEN: Soft, nontender. There is no rebound or guarding. EXTREMITIES: Shows no leg edema or calf tenderness. There is no cyanosis or clubbing. SKIN: Shows no rashes. NEUROLOGICAL: Shows no focal abnormalities. LABORATORY DATA: White blood cell count is 20.44 and hemoglobin is 15. The platelet count is 188. The BUN to creatinine ratio is normal. The other electrolytes are within normal limits. The albumin is 2.3. IMPRESSION: 1. Acute respiratory failure. 2. Viral pneumonia COVID-19 infection. 3. Hypertension. 4. Diabetes. PLAN: 1. Continue Zithromax and Rocephin. 2. Continue Lovenox, Tussionex p.r.n. 3. . 4. Continue oxygen. Levar Rodriguez MD [facility]/MODL /[id number]
--- NOTE | 2020-02-21 08:48 | Diagnostic Imaging Report ---
TECHNIQUE: Frontal view of the chest. INDICATION: ^Resp Distress ^[id number] ^0531 ^Y COMPARISON: Prior day. DISCUSSION: Limited evaluation due to portable technique. Lines and hardware: Overlying EKG leads are noted. Heart and mediastinum: Stable. Lungs and pleura: Stable diffuse bilateral pulmonary infiltrates with a peripheral dominants. Negative for large pneumothorax or effusion. Soft tissues and bones: No acute abnormality. IMPRESSION: Stable diffuse bilateral pulmonary infiltrates, with a peripheral predominance. Signed by: Atul Packer MD on 02/21/2020 8:45 AM
[2020-02-21] MEDS: ACETAMINOPHEN 325 MG TAB PO PRN (19:53)
--- NOTE | 2020-02-21 21:50 | NUR ---
INFECTIOUS DISEASE PROGRESS NOTE DR. CORINE PIMENTEL REVIEW OF SYSTEMS: fatigue and shortness of breath ALL ROS NOTED AND PERTINENT POSITIVES LISTED ABOVE PHYSICAL EXAMINATION: GENERAL: He is currently alert and oriented. VITAL SIGNS: in ICU HEENT: He is not icteric. normocephalic NECK: Supple. no JVD CHEST: Few crackles bilateral. symmetric expansion HEART: S1 and S2. no rub ABDOMEN: Soft. non-tender, Bowel sounds present. EXTREMITIES: No edema. moves all SKIN: There is no rash. IMPRESSION: COVID-19 respiratory failure concern superimposed bacterial pneumonia. PLAN supportive care RMSV lovenox oxygen guarded prognosis Darling Javed MSN, ENTRY LEVEL CIVIL ENGINEER, AGACNP-BC d/w Corine Pimentel M.D
[2020-02-22] VITALS: BP 137/83
--- NOTE | 2020-02-22 00:20 | NUR ---
Patient continued to have more frequent O2 desats. O2 sat dropped to 60%. Informed Dr. Rodriguez of patient condition, frequent desats, RR in 30-40s, and attempts made to prone patient and initiate bipap. MD stated to place patient back on bipap, MD is OK with O2 sat > or equal to 85%. RN placed patient on bipap with improvement of O2 sats to 85%.
[2020-02-22 01:07] VITALS: BP 134/96
[2020-02-22 02:17] VITALS: BP 229/111
[2020-02-22] MEDS ORDERED: MIDAZOLAM HCL 5MG/ML 10ML VIAL 100 ML IV ONE (02:28)
[2020-02-22] MEDS ORDERED: FENTANYL 2000MCG/NS 250 250 ML ONE (02:29)
[2020-02-22] MEDS ORDERED: FENTANYL CITRATE INJ 2,000 MCG in SODIUM CHLORIDE 0.9% 250ML 210 ML IV PRN (02:30)
[2020-02-22] MEDS ORDERED: MIDAZOLAM HCL 5MG/ML 10ML VIAL 100 ML IV PRN (02:30)
--- NOTE | 2020-02-22 03:01 | Diagnostic Imaging Report ---
EXAMINATION: CHEST SINGLE (PORTABLE) INDICATION: ^Resp Distress ^[id number] ^0210 ^Y COMPARISON: X-ray from yesterday FINDINGS: Endotracheal tube tip is 8 cm above the annita. Unchanged cardiac silhouette. Diffuse bilateral interstitial and patchy opacities throughout both lungs. Worsening airspace disease at the right lung base. No pleural effusion. No pneumothorax. IMPRESSION: 1. Endotracheal tube tip 8 cm above the annita. Advancement recommended. 2. Diffuse bilateral pneumonia worsening at the right base. Signed by: Reid Luke MD on 02/22/2020 2:57 AM
[2020-02-22] MEDS ORDERED: ATROPINE SULFATE 0.1 MG/ML 10ML SYR ONE ×4 (03:03→14:01)
[2020-02-22 03:06] VITALS: BP 130/100
[2020-02-22] MEDS ORDERED: EPINEPHRINE HCL SYRINGE ONE ×3 (03:31→14:01)
[2020-02-22] MEDS ORDERED: SODIUM BICARBONATE 8.4% SYRING 100 ML ONE (03:36)
[2020-02-22] MEDS ORDERED: NOREPINEPHRINE 8 MG/D5W 250 ML 250 ML ONE (04:10)
[2020-02-22 04:47] LABS: ABG PCO2 60 mmHg (35-45); ABG PH 7.27 (7.35-7.45); ABG PO2 25 mmHg (80-105)
[2020-02-22 04:48] LABS: ABG HCO3 27 mmol/L (22-26); ABG TCO2 29
--- NOTE | 2020-02-22 05:05 | Diagnostic Imaging Report ---
EXAMINATION: CHEST SINGLE (PORTABLE) INDICATION: ^[id number] ^0400 ^POST CPR COMPARISON: Same day radiograph FINDINGS: Endotracheal tube 3.8 cm above the annita. Cardiac silhouette is obscured by adjacent lung opacity. Diffuse patchy and confluent opacities throughout both lungs worsening at the right lung base, and the left upper and lower lung. Underpenetration limits evaluation of the osseous structures. No pneumothorax. IMPRESSION: 1. Endotracheal tube tip 3.8 cm above the annita. No pneumothorax. 2. Worsening patchy and confluent airspace disease bilaterally which could represent worsening pneumonia, ARDS, and/or superimposed atelectasis. Signed by: Reid Luke MD on 02/22/2020 5:01 AM
--- NOTE | 2020-02-22 05:07 | Operative Report ---
DATE OF PROCEDURE: SURGEON: Levar Rodriguez MD PROCEDURE: Central line placement under ultrasound guidance. PREOPERATIVE DIAGNOSES: Hemodynamic instability, hypotension, and probable myocardial infarction. POSTOPERATIVE DIAGNOSES: Hemodynamic instability, hypotension, and probable myocardial infarction. CONSENT: Consent was deemed emergent. MEDICATIONS: 1% lidocaine for local anesthesia. PROCEDURE IN DETAIL: Right neck was prepped sterilely with chlorhexidine. A full-length sterile drape was used as well as a sterile gown, sterile gloves, and sterile mask. 1% lidocaine was used to anesthetize the area between the heads of the sternocleidomastoid. An ultrasound machine was used to locate the right internal jugular vein. The vein was visualized. There was no thrombosis. The vein collapsed easily. The vein was cannulated under direct visualization with a 16-gauge needle on the first attempt. A wire was passed through the needle. A dilator was used to open the skin. A triple-lumen catheter was passed over the wire by the Seldinger technique. All the ports were flushed. COMPLICATIONS: None. ESTIMATED BLOOD LOSS: None. Levar Rodriguez MD [facility]/MODL /[id number]
--- NOTE | 2020-02-22 05:11 | Progress Note ---
DATE: 02/22/2020 SUBJECTIVE: The patient desaturated early this morning after being placed on BiPAP. He required a rapid response and emergent intubation. 45 minutes later, he had 2:1 heart block with bradycardia. He required atropine followed by epinephrine and CPR. He continued to have intermittent bradycardia, asystole, and pulseless electrical activity over the next 1 to 2 hours. PHYSICAL EXAMINATION: VITAL SIGNS: The patient is now on a mechanical ventilator with a PRVC mode of ventilation at a rate of 30. The FiO2 is set at 100% and PEEP is set at 10. His tidal volume is 700. His pulse is thready and he has a blood pressure of 50 systolic on maximum Levophed. HEENT: Shows no facial swelling or erythema. There is a right IJ lining. The site looks clean. CARDIAC: Reveals distant heart sounds. Normal S1 and S2. LUNGS: Auscultation of lungs shows decreased breath sounds at the bases. ABDOMEN: Soft, nontender. There is no rebound or guarding. EXTREMITIES: Examination of the extremities shows an intraosseous line in the right leg. IMPRESSION: 1. COVID-19 and viral pneumonia. 2. Cardiopulmonary arrest. 3. Myocardial infarction. 4. Hypertension. 5. Diabetes. PLAN: 1. Continue Levophed. 2. Prognosis is very poor. 3. Continue mechanical ventilation. 4. Repeat ABG. 5. Discussed case with family. Greater than 35 minutes in direct critical care time apart from any procedures performed. Levar Rodriguez MD [facility]/RYDER /[id number]
--- NOTE | 2020-02-22 05:26 | NUR ---
Rapid response called at 0202 d/t respiratory distress, pt desat to 30s. Dr. Rodriguez notified. Dr. Paredes and rapid response team at bedside to intubate. See rapid response sheet. 0300- Code blue called. Patient became bradycardic, HR 20s, no pulse palpated. CPR started. See code blue sheet. Dr. Rodriguez and Dr. Paredes at bedside. 0415- Mari updated. stated to stop resuscitation attempts. 0420- TOD.
--- NOTE | 2020-02-22 08:08 | NUR ---
Patient was intubated this morning. Will hold physical therapy due to change of status. Will need new orders to resume therapy when medically stable. Addendum: 02/22/20 at 0811 by MELVI SILVA PT Amended: Links added.
--- NOTE | 2020-02-22 08:11 | NUR ---
Will hold physical therapy due to change of status. Patient intubated this morning. Will need new orders to resume therapy when medically stable. Addendum: 02/22/20 at 0811 by MELVI SILVA PT Amended: Links added.
[2020-02-22] MEDS ORDERED: ETOMIDATE 2 MG/ML 10 ML INJ IV ONE (14:01)
[2020-02-22] MEDS ORDERED: SODIUM CHLORIDE 0.9% INJ 250 ML BAG ONE (14:01)
[2020-02-22] MEDS ORDERED: EPINEPHRINE HCL 1:1000 1ML 1 MG/ML AMP ONE (14:01)
[2020-02-22] MEDS ORDERED: VECURONIUM BROMIDE FOR INJ 20 MG VIAL ONE (14:01)
[2020-02-22] MEDS ORDERED: SODIUM BICARBONATE 8.4% INJ 50 ML SYR ONE (14:01)
[2020-02-22] MEDS ORDERED: SUCCINYLCHOLINE CHLORIDE 20 MG/ML 10ML VIAL ONE (14:01)
--- NOTE | 2020-02-23 06:36 | Discharge Summary ---
DATE OF : 02/22/2020. ADMISSION DIAGNOSES: COVID-19 pneumonia with acute respiratory distress syndrome, present on admission, acute respiratory failure with hypoxia secondary to COVID, type 2 diabetes, obesity with a BMI of 34.45, acute hyponatremia. DISCHARGE DIAGNOSES: COVID-19 pneumonia with acute respiratory distress syndrome, present on admission, acute respiratory failure with hypoxia secondary to COVID, type 2 diabetes, obesity with a BMI of 34.45, acute hyponatremia, probable WI. HISTORY: Type 2 diabetes, hypertension, obesity. SURGICAL HISTORY: Left index finger laceration repair. FAMILY HISTORY: The patient's mom, sister, and brother had diabetes. The patient's sister had lupus. SOCIAL HISTORY: The patient denies tobacco, alcohol, and drug use. HOSPITAL COURSE: A 50-year-old male admits with complaints of dyspnea and cough for 9 days. He also had a fever of 102.9 and a headache. He was tested at [facility] along with his and both tested positive for COVID-19. They went home for few days and were not too short of breath, but progressively worsen, so the patient decided to come into the ER. On admission, the patient was started on dexamethasone, IV Rocephin, Zithromax, remdesivir, Lovenox, vitamin. ID and Pulmonology were consulted. The patient was started on insulin for his diabetes. Initial chest x-ray showed findings consistent with bilateral viral versus atypical infection. His COVID pneumonia was positive. EKG on admission was normal sinus with a rate of 85. Echo showed an EF of 60%. His chest x-ray on the showed significant worsening of bilateral pulmonary infiltrates. On the morning of 02/22/2020, the patient had to be intubated rather quickly as his medical state deteriorated rapidly. According to nursing report at one point, he was sitting on the side of the bed, watching TV and then crashed. At 030 on the morning of 02/21, the patient coded. He was found to have no POLST. At 033, a chest x-ray was done, which showed an ET tube 8 cm above the annita. Diffuse bilateral pneumonia, worsening in the right base. At 035, the patient became hypotensive and was started on an epi drip. He had a central line placed at bedside by critical care doctor. At 042, the code was called. The patient's time of is 0426 on 02/22/2020. Dictated by Kristin Higgins, CROSS CUT SAWYER Deshawn Mcmillan MD [facility]/MODL /[id number]
== END 2020-02-22 16:28 | disposition expired | DRG 208 ==
LOC: ER 17:30 → ERHOLD 19:04 → IMCU 19:59 → ICU 02-17 11:36
PROVIDERS: ADMIT Internal Medicine; ATTEND Internal Medicine
PROC: XW0DXF5 Introduction of Other New Technology Therapeutic Substance into Mouth and Pharynx, External Approach, New Technology Group 5 (ICD-10-PCS; 2020-02-14)
PROC: XW033E5 Introduction of Remdesivir Anti-infective into Peripheral Vein, Percutaneous Approach, New Technology Group 5 (ICD-10-PCS; principal; 2020-02-15)
PROC: 5A1935Z Respiratory Ventilation, Less than 24 Consecutive Hours (ICD-10-PCS; 2020-02-22)
PROC: 0BH17EZ Insertion of Endotracheal Airway into Trachea, Via Natural or Artificial Opening (ICD-10-PCS; 2020-02-22)
PROC: 5A12012 Performance of Cardiac Output, Single, Manual (ICD-10-PCS; 2020-02-22)
PROC: 02HV33Z Insertion of Infusion Device into Superior Vena Cava, Percutaneous Approach (ICD-10-PCS; 2020-02-22)
PROC: B548ZZA Ultrasonography of Superior Vena Cava, Guidance (ICD-10-PCS; 2020-02-22)
DX: U07.1 COVID-19 (principal); J12.89 Other viral pneumonia; I21.9 Acute myocardial infarction, unspecified; J15.9 Unspecified bacterial pneumonia; J80 Acute respiratory distress syndrome; J96.01 Acute respiratory failure with hypoxia; E87.1 Hypo-osmolality and hyponatremia; I46.8 Cardiac arrest due to other underlying condition; I10 Essential (primary) hypertension; E11.9 Type 2 diabetes mellitus without complications; E66.9 Obesity, unspecified; Z83.3 Family history of diabetes mellitus; Z82.49 Family history of ischemic heart disease and other diseases of the circulatory system; Z84.89 Family history of other specified conditions; Z79.84 Long term (current) use of oral hypoglycemic drugs; Z68.34 Body mass index [BMI] 34.0-34.9, adult; E83.39 Other disorders of phosphorus metabolism
CPT/HCPCS: 31500; 36415; 36600; 71045; 80053; 80061; 81001; 82805; 82948; 83036; 83735; 84100; 84443; 84484; 85025; 92950; 93005; 93306; 94002; 94660; 96360; 96372; 97139; 99284; J0171; J0330; J0456; J0696; J1100; J1650; J1817; J2405; J2543; J7050; J7799; U0002